=== PATIENT | female | born 1935 | race Caucasian/White ===

== ENCOUNTER 2020-08-23 23:04 | Inpatient (IN) ==
[2020-08-23] MEDS ORDERED: HYDROmorphone INJ 0.5 MG/0.5 ML SYR IV PRN (23:15)
[2020-08-23] MEDS ORDERED: SODIUM CHLORIDE 0.9% 500 ML IV ONE (23:15)
[2020-08-23] MEDS ORDERED: ACETAMINOPHEN 1,000 MG/100 ML VIAL IV STA (23:17)
[2020-08-23 23:47] LABS: INR 1.1 (0.9-1.1); Partial Thromboplastin Time 25.6 Seconds (21.0-31.0); Prothrombin Time 11.1 Seconds (9.0-12.0)
[2020-08-23 23:52] LABS: Appearance Urine Cloudy (Clear); Bilirubin Urine Negative (Negative); Blood Urine Trace-intact (Negative); Color Urine Yellow; Glucose Urine UA Negative (Negative); Hematocrit (blood only) 29.9 % (37-47); Hemoglobin 8.4 g/dL (12.0-16.0); Ketones Urine Negative (Negative); Leukocyte Esterase Urine 3+ (Negative); Mean Corpuscular Hemoglobin 16.4 pg (25-34); Mean Corpuscular Hgb Conc 28.1 g/dL (32-36); Mean Corpuscular Volume 58.5 fL (80-100); Mean Platelet Volume 8.5 fL (7.4-10.4); Nitrite Urine Negative (Negative); Platelet Count 810 K/uL (130-400); Protein Urine 2+ (Negative); RDW Coefficient of Variation 20.2 % (11.5-14.5); RDW Standard Deviation 42.8 fL (36.4-46.3); Red Blood Count 5.11 M/uL (4.2-5.4); Specific Gravity Urine >= 1.030 (1.000-1.030); Urobilinogen Urine Negative (Negative); White Blood Count 22.75 K/uL (4.8-10.8); pH Urine 7.5 (4.5-7.5)
[2020-08-23 23:53] LABS: Albumin Level 2.8 gm/dl (3.4-5.0); BUN Creatinine Ratio 20.7 (10-20); Calcium 9.5 mg/dl (8.5-10.1); Creatinine Clr Calc Pharmacy 33.5 ml/min; Est GFR (African American) 49.9; Potassium 4.2 mmol/L (3.5-5.1)
[2020-08-23 23:54] LABS: Basophils # (auto) 0.02 K/uL (0-0.2); Basophils % (auto) 0.1 %; Echinocytes 1+; Eosinophils # (auto) 0.01 K/uL (0-0.5); Hypochromasia Present; Immature Granulocytes # (auto) 0.13 K/uL (0.00-0.02); Immature Granulocytes % (auto) 0.6 %; Lymphocytes # (auto) 0.89 K/uL (1.2-3.4); Lymphocytes % (auto) 3.9 %; Monocytes # (auto) 1.87 K/uL (0.11-0.59); Monocytes % (auto) 8.2 %; Neutrophils # (auto) 19.83 K/uL (1.4-6.5); Neutrophils % (auto) 87.2 %; Ovalocytes 1+
[2020-08-23 23:58] LABS: Albumin Globulin Ratio 0.6 (0.9-2); Bilirubin,Total 0.3 mg/dl (0.2-1); Creatine Kinase MB 4.8 ng/ml (0.5-3.6); Total Protein 7.8 gm/dl (6.4-8.2)
[2020-08-24] LABS: RBC Urine 0-4 /hpf (0-4); WBC Urine >30 /hpf (0-5)
[2020-08-24 00:01] LABS: Bacteria Urine 2+ (Negative); Renal Epithelial Cells Urine 0-5 /lpf (0-5)
--- NOTE | 2020-08-24 00:27 | History & Physical Report ---
Date of Service August 24, 2020 Assessment & Plan (1) Hip fracture: 84-year-old female with CKD, prediabetes, dyslipidemia admitted for hip fracture after fall at home. Left hip fracture Femur and pelvic x-ray showing proximal femur fracture at neck of femur on the l eft CT pelvis pending CT lumbar spine negative for acute compression fractures. Chest x-ray unremarkable Dr. Chand with [facility] orthopedics consulted Pain control: 1 g Tylenol scheduled every 8 hours 0.5 mg IV Dilaudid as needed every 2 for moderate pain or pre-PT 1 mg Dilaudid IV every 2 as needed for severe pain or pre-PT 5 mg oxycodone IR every 6 as needed p.o. for moderate pain Bowel regimen: MiraLAX, Dulcolax, docusate/senna ordered PT OT consults after surgery N.p.o. at midnight UTI Urine sample significant for urine bacteria, leukocyte esterase, epithelial cells, blood most likely indicative of UTI Patient at this time does not attest to having any urinary symptoms however this could have contributed to her falling over We will treat with ceftriaxone 1 g every 24 IV. Thrombocytosis Appears to have chronically elevated platelet counts Highest recorded is today, in the 800s Patient denies any easy bleeding or clotting, spontaneous bruises DVT prophylaxis: Will hold off and defer to orthopedic surgery, in the meantime SCDs FEN/GI: N.p.o. at midnight okay for sips and chips with meds CODE STATUS: Full code Dispo: MedSurg (2) Thrombocytosis: History of Present Illness 84-year-old female with a past medical history of CKD stage III, dyslipidemia, iron deficiency anemia who presents to the emergency department for a fall 2 days ago. She states that she was taking her garbage to the end of her driveway bent over to try and pick something up and ended up falling forward. She states that she did not come to the emergency department for care at that time because she was not having that much pain initially in her hip. She did try to take some Tylenol at home but found that it was not controlling the pain appropriately as time went on. She has not had any previous bone fractures and has not been diagnosed with osteoporosis. She was recently seen by her PCP in March 2020 placed on iron supplements for an iron deficiency anemia. She was also recently seen by hematology oncology in [place] who recommended that she have an EGD and colonoscopy to work-up for possible underlying malignancy. She deferred getting the work-up done at that time and continues to deny getting it back up. At this time she denies any dizziness lightheadedness, chest pain shortness of breath, nausea vomiting constipation, diarrhea numbness tingling. Primary Care Provider: Giovana Strong DO Allergies Allergy/AdvReac Type Severity Reaction Status Date / Time No Known Drug Allergies Allergy Unknown Verified 08/24/20 00:20 Home Medications Medication Instructions Recorded Confirmed Type cholecalciferol (vitamin D3) 25 1,000 units PO DAILY 04/19/19 08/24/20 History mcg (1,000 unit) capsule glucosamine HCl 1,500 mg tablet 1,500 mg PO DAILY 04/19/19 08/24/20 History multivit with 1 tab PO DAILY 04/19/19 08/24/20 History [id number]-XL-lutein 8 mg iron-400 mcg-300 mcg tablet vitamin E (dl, acetate) 400 unit 400 units PO DAILY 04/19/19 08/24/20 History capsule ferrous sulfate 325 mg (65 mg 325 mg PO DAILY #30 tab 04/22/19 08/24/20 Rx iron) tablet Past Med/Surg History Medical History Anemia Arthritis CKD (chronic kidney disease) stage 3, GFR 30-59 ml/min Dyslipidemia HTN (hypertension) Obesity Prediabetes Surgical History Status post surgery skin gaff to R arm. Family History Brother Coronary heart disease in his 50s Mother Hypertension Father No problems noted. Brother Coronary heart disease Brother Coronary heart disease Denies family history of Ovarian cancer Prostate cancer Myocardial infarction Breast cancer Colorectal cancer Social History Smoking Status: Never smoker Tobacco Type: Cigarettes Hx Alcohol Use: No Hx Substance Use: No Preferred Language: Kiswahili Communication Ability: Effective Visual Impairment: Limited Hearing Ability: Normal [employer] Supervisor Required: No Beliefs That Will Affect Care: None marital status: / Current Living Situation: Alone current occupational status: retired Other Information That Helps Us Care for You: No Feels Safe at Home: Yes Safety Concerns: Feels Safe At This Time Childhood Exposure to Second-Hand Smoke: Yes caffeine: Yes (coffee x 2 cups per day.) during the past year weight has: remained stable Dental Care, Regularly: Yes Physical Activity Frequency: 3-4 Times per Week Seatbelt Use: always Sunscreen Use: Yes Assistive Devices: Glasses Review of Systems Review of Systems: All systems reviewed & are unremarkable except as noted in Subjective Physical Exam Physical Exam: Constitutional: thin elderly woman in no apparent distress, sitting comfortably in bed. Face: reddish-purple bruise on lateral aspect of right orbit onto the temples Eyes: EOMI, pupils equal and reactive bilaterally, no scleral icterus Cardiac: RRR, no murmurs, gallops or rubs. Normal S1, S2 Pulm: CTA BL, no wheezes, rhonchi, crackles or rubs, moving air well throughout both lungs Abd: soft, nontender, nondistended, normal bowel sounds, no rebound or guarding Extremities: 2+ peripheral pulses, no edema, no pain to palpation overlying left thigh Neuro: no focal deficits, A&Ox3 Skin: no overlying hematoma or bruising over left thigh/pelvis. Results & Data Results & Data ([facility]) Vital Signs (Past 12 Hours) Vital Signs Temp Pulse Resp BP Pulse Ox 08/23/20 23:28 37.0 C 110 H 18 110/73 94 Laboratory Results WBC 22.75 K/uL (4.8-10.8) H 08/23/20 23:24 RBC 5.11 M/uL (4.2-5.4) 08/23/20 23:24 Hgb 8.4 g/dL (12.0-16.0) L 08/23/20 23:24 Hct 29.9 % (37-47) L 08/23/20 23:24 MCV 58.5 fL (80-100) L 08/23/20 23:24 MCH 16.4 pg (25-34) L 08/23/20 23:24 MCHC 28.1 g/dL (32-36) L 08/23/20 23:24 RDW Std Deviation 42.8 fL (36.4-46.3) 08/23/20 23:24 RDW Coeff of Gonzalez 20.2 % (11.5-14.5) H 08/23/20 23:24 Plt Count 810 K/uL (130-400) H 08/23/20 23:24 MPV 8.5 fL (7.4-10.4) 08/23/20 23:24 Immature Gran % (Auto) 0.6 % 08/23/20 23:24 Neut % (Auto) 87.2 % 08/23/20 23:24 Lymph % (Auto) 3.9 % 08/23/20 23:24 [place] % (Auto) 8.2 % 08/23/20 23:24 Eos % (Auto) 0.0 % 08/23/20 23:24 Baso % (Auto) 0.1 % 08/23/20 23:24 Neut # (Auto) 19.83 K/uL (1.4-6.5) H 08/23/20 23:24 Lymph # (Auto) 0.89 K/uL (1.2-3.4) L 08/23/20 23:24 [place] # (Auto) 1.87 K/uL (0.11-0.59) H 08/23/20 23:24 Eos # (Auto) 0.01 K/uL (0-0.5) 08/23/20 23:24 Baso # (Auto) 0.02 K/uL (0-0.2) 08/23/20 23:24 Immature Gran # (Auto) 0.13 K/uL (0.00-0.02) H 08/23/20 23:24 Hypochromasia Present 08/23/20 23:24 Ovalocytes 1+ 08/23/20 23:24 Echinocytes 1+ 08/23/20 23:24 PT 11.1 Seconds (9.0-12.0) 08/23/20 23:24 INR 1.1 (0.9-1.1) 08/23/20 23:24 APTT 25.6 Seconds (21.0-31.0) 08/23/20 23:24 PTT Ratio 1.0 08/23/20 23:24 Sodium 138 mmol/L (136-145) 08/23/20 23:24 Potassium 4.2 mmol/L (3.5-5.1) 08/23/20 23:24 Chloride 106 mmol/L (98-107) 08/23/20 23:24 Carbon Dioxide 23 mmol/L (21-32) 08/23/20 23:24 Anion Gap 9.0 (3-11) 08/23/20 23:24 BUN 24 mg/dl (7-18) H 08/23/20 23:24 Creatinine 1.15 mg/dl (0.6-1.2) 08/23/20 23:24 Est Cr Clr Drug Dosing 33.5 ml/min 08/23/20 23:24 Est GFR ( Amer) 49.9 08/23/20 23:24 Est GFR (Non-Af Amer) 43.0 08/23/20 23:24 BUN/Creatinine Ratio 20.7 (10-20) H 08/23/20 23:24 Glucose 162 mg/dl (70-99) H 08/23/20 23:24 Calcium 9.5 mg/dl (8.5-10.1) 08/23/20 23:24 Total Bilirubin 0.3 mg/dl (0.2-1) 08/23/20 23:24 AST 24 U/L (15-37) 08/23/20 23:24 ALT 17 U/L (12-78) 08/23/20 23:24 Alkaline Phosphatase 75 U/L (45-117) 08/23/20 23:24 Total Creatine Kinase 356 U/L (26-192) H 08/23/20 23:24 CK-MB (CK-2) 4.8 ng/ml (0.5-3.6) H 08/23/20 23:24 CK/CKMB % Calc 1.3 (0-3.0) 08/23/20 23:24 Total Protein 7.8 gm/dl (6.4-8.2) 08/23/20 23:24 Albumin 2.8 gm/dl (3.4-5.0) L 08/23/20 23:24 Globulin 5.0 gm/dl (2.5-4.0) H 08/23/20 23:24 Albumin/Globulin Ratio 0.6 (0.9-2) L 08/23/20 23:24 Urine Color Yellow 08/23/20 23:24 Urine Appearance Cloudy (Clear) A 08/23/20 23:24 Urine pH 7.5 (4.5-7.5) 08/23/20 23:24 Ur Specific [place] >= 1.030 (1.000-1.030) 08/23/20 23:24 Urine Protein 2+ (Negative) H 08/23/20 23:24 Urine Glucose (UA) Negative (Negative) 08/23/20 23:24 Urine Ketones Negative (Negative) 08/23/20 23:24 Urine Blood Trace-intact (Negative) H 08/23/20 23:24 Urine Nitrite Negative (Negative) 08/23/20 23:24 Urine Bilirubin Negative (Negative) 08/23/20 23:24 Urine Urobilinogen Negative (Negative) 08/23/20 23:24 Ur Leukocyte Esterase 3+ (Negative) H 08/23/20 23:24 Urine RBC 0-4 /hpf (0-4) 08/23/20 23:24 Urine WBC >30 /hpf (0-5) H 08/23/20 23:24 Ur Epithelial Cells 5-10 /lpf (0-5) H 08/23/20 23:24 Ur Renal Epithelial Cell 0-5 /lpf (0-5) 08/23/20 23:24 Urine Bacteria 2+ (Negative) H 08/23/20 23:24 COVID-19 Eval Order Covid19 [facility]Now [facility] 08/23/20 23:25 SARS-CoV-2, RNA, NAAT NEGATIVE (NEGATIVE) 08/23/20 23:25 Supervising Physician Co-Signing Physician Notes Attending addendum: I have physically seen this patient, have supervised the medical residents activities, and agree with the H&P unless as otherwise noted. Assessment and Plan: Closed left hip fracture- N.p.o. after midnight Admit to medical surgical floor Acetaminophen 1000 mg IV every 8 hours Dilaudid 0.5 mg IV every 2 hours as needed moderate pain Dilaudid 1 mg IV every 2 hours as needed severe pain Oxycodone 5 mg p.o. every 6 hours as needed moderate pain Geriatric hip fracture protocol order set Case discussed with orthopedic consult Dr. Chand Urinary tract infection- Follow urine culture and sensitivities Empiric ceftriaxone 1 g IV daily Remaining orders and notations as noted Resident Activity Tracking Resident Involvement: Resident Care Provided Care Provided: Adult [facility] Medicine (1) Hip fracture Encounter type: initial encounter Fracture type: closed Laterality: left Qualified Code(s): S72.002A - Fracture of unspecified part of neck of left femur, initial encounter for closed fracture
--- NOTE | 2020-08-24 00:45 | Emergency Department Note ---
Impression & Plan Fall, HTN (hypertension), Anemia, Hip fracture ED Provider Note NAME: JABIER GARAY AGE: 84 SEX: F : 1935 ARRIVES VIA: Ambulance INFORMANT: Patient, EMS, son ED PROVIDER(S): German Tellez MD CHIEF COMPLAINT: lay on ground for 2 days HPI: This is an 84-year-old female who presents emergency department after falling and laying on the ground for 2 days. The patient reports she was having back and hip pain and therefore sat on the ground. She has a history of a fall approximately 1 month ago. Upon arrival to the emergency department patient is unable to move her left hip. Family became concerned because they were unable to contact the patient for 2 days and sent a neighbor who was able to get into the house and find the patient on the floor. EMS was summoned brought the patient to the emergency department. The patient reports movement makes the pain worse however immobilization makes it better. She has not taken anything for the pain prior to arrival. She describes the pain as an ache with no radiation. ROS: See above HPI for pertinent positives & negatives. A total of 10 systems reviewed and were otherwise negative. PAST MEDICAL HISTORY: See Below PAST SURGICAL HISTORY: See Below FAMILY HISTORY: See Below SOCIAL HISTORY: See Below HOME MEDICATIONS: See Below ALLERGIES: See Below VITALS: See Below PHYSICAL EXAMINATION: VITAL SIGNS - Vital signs and nursing notes were reviewed. GENERAL - 84-year-old female appearing stated age who is in no acute distress. Communicates well with provider and answers questions appropriately. SKIN - Without rashes. HEAD - NC/AT. EYES - PERRL with EOMI bilaterally. Sclera anicteric. Palpebral conjunctiva pink and moist with no injection noted. EARS - No deformities of external structures noted on gross examination bilaterally. NOSE - Midline and without cyanosis. No epistaxis or purulent drainage noted. Septum midline without deviation or septal hematoma noted. MOUTH/OROPHARYNX - Without perioral cyanosis. Buccal mucosa pink and moist and without leukoplakia. Tongue midline with equal elevation of palate bilaterally. No tonsillar hypertrophy, erythema, or exudates noted. dentition noted. NECK - Neck with FROM. Supple to palpation. lymphadenopathy noted. No nuchal rigidity. LUNGS - Chest wall symmetric without accessory muscle use, intercostals retractions, or central cyanosis. Normal vesicular breath sounds CTA B/L. No wheezes, rales, or rhonchi appreciated. CARDIAC - RRR with S1/S2. No murmur, rubs, or gallops appreciated. ABDOMEN - Abdominal contour without pulsations or visible masses. BS normoactive all four quadrants. No tenderness, palpable masses, hepatosplenomegaly, or ascites noted. EXTREMITIES - left leg in position of comfort, pt unable to raise left hip, neurovascularly intact at knee and ankle. NEUROLOGIC - Cranial nerves II through XII grossly intact. Sensory intact to light touch throughout. Patellar reflexes +2/4. PSYCH - A&Ox3 and cooperates fully with examiner. Pt is very pleasant and interacts well with examiner. MEDICAL DECISION MAKING: Patient was seen and evaluated as above in room A12. Review was performed of nursing notes and vital signs. I did review pertinent previous visits and patient history. After obtaining a thorough history and physical examination the above work up was performed. This is an 84-year-old female who presents emergency department after laying on the ground for approximately 48 hours. Patient CK is slightly elevated. She was given a normal saline bolus here in the emergency department. She was given Dilaudid for her pain. The patient is anemic but appears to be at her baseline. Because of the hip fracture she was typed and screened. I did discuss my findings with both the patient and her son. X-rays do confirm a left hip fracture. I did discuss the case with the hospitalist service as well as the orthopedic service. An order was placed for continuous cardiac monitoring. The monitor shows a rate of 99 with Normal SInus rhythm. The patient was evaluated during a period of high volume and high acuity during the global COVID-19 pandemic, and that diagnosis was suspected/considered upon their initial presentation. Their evaluation, treatment and testing was consistent with current guidelines for patients who present with complaints or symptoms that may be related to COVID-19. Patient was seen while provider was wearing PPE. Triage Nursing notes reviewed. Prior medical records reviewed Vital Signs: reviewed and remarkable for no significant abnormalities Differential diagnosis: Fracture, subluxation, dislocation, contusion, ligamentous injury, neurovascular, compartment syndrome, rhabdomyolysis, as well as other pathologies. ER treatment provided: See below Diagnostics interpreted by me: ECG: EKG shows a sinus tachycardia no ST elevation or depression ventricular rate of 109 QTC is 468 there is no previous EKG to compare to Laboratory studies: As stated above and show below. Imaging studies: A 1 view of the chest was interpreted by me shows no evidence of pneumonia congestion or pneumothorax A 1 view of the pelvis was interpreted by me shows an intertrochanteric left femur fracture A 2 view of the left femur was interpreted by me shows the intertrochanteric left femur fracture CT L-spine: No fractures of the lumbar spine. There are degenerative changes with intervertebral disc narrowing at all levels. At L1-L2 there is a small disc bulge. At L2-L3 there is a small diffuse disc bulge. In conjunction with facet hypertrophy this results in moderate central stenosis at this level. At the level of L3-L4 there is diffuse disc bulge and posterior osteophyte in conjunction with facet hypertrophy there is moderate central canal spinal stenosis. At L4-L5 there is a right paracentral disc bulge and central osteophyte formation. In conjunction with facet hypertrophy this results in moderate central spinal canal stenosis. Impression multilevel moderate stenosis related to facet hypertrophy and small disc bulges. CT of the head: No ICH mass-effect or edema. No evidence of acute cortical stroke. There is a rounded expansile density in the right maxillary sinus suggesting a mucous retention cyst. Consultation(s): orthopedics, hospitalist service Past Med/Surg History Medical History Anemia Arthritis CKD (chronic kidney disease) stage 3, GFR 30-59 ml/min Dyslipidemia HTN (hypertension) Obesity Prediabetes Surgical History Status post surgery skin gaff to R arm. Family History Brother Coronary heart disease in his 50s Mother Hypertension Father No problems noted. Brother Coronary heart disease Brother Coronary heart disease Denies family history of Ovarian cancer Prostate cancer Myocardial infarction Breast cancer Colorectal cancer Social History Smoking Status: Former smoker Tobacco Type: Cigarettes Hx Alcohol Use: No Hx Substance Use: No Preferred Language: Nepali Communication Ability: Effective Visual Impairment: Limited Hearing Ability: Normal Beliefs That Will Affect Care: None marital status: / Current Living Situation: Alone current occupational status: retired Feels Safe at Home: Yes Childhood Exposure to Second-Hand Smoke: Yes caffeine: Yes (coffee x 2 cups per day.) during the past year weight has: remained stable Dental Care, Regularly: Yes Physical Activity Frequency: 3-4 Times per Week Seatbelt Use: always Sunscreen Use: Yes Allergies Allergies Allergy/AdvReac Type Severity Reaction Status Date / Time No Known Drug Allergies Allergy Unknown Verified 08/24/20 00:20 Home Meds Home Medications Medication Instructions Recorded Confirmed cholecalciferol (vitamin D3) 25 1,000 units PO DAILY 04/19/19 08/24/20 mcg (1,000 unit) capsule glucosamine HCl 1,500 mg tablet 1,500 mg PO DAILY 04/19/19 08/24/20 multivit with 1 tab PO DAILY 04/19/19 08/24/20 eugbeefx-ahma-UK-lutein 8 mg iron-400 mcg-300 mcg tablet vitamin E (dl, acetate) 400 unit 400 units PO DAILY 04/19/19 08/24/20 capsule Previous Rx's Medication Instructions Recorded ferrous sulfate 325 mg (65 mg 325 mg PO DAILY #30 tab 04/22/19 iron) tablet Results & Data (ED) Vital Signs Vital Signs - 24 hr 08/23/20 23:28 08/24/20 00:39 08/24/20 02:04 Temperature 37.0 C Temperature Source Oral Pulse Rate 110 H 97 H Pulse Rate [Right] 99 H Pulse Rhythm Regular Pulse Rhythm [Right] Regular Pulse Strength Normal Pulse Strength [Right] Normal Respiratory Rate 18 16 18 Respiratory Effort / Characteristics Non-Labored Spontaneous Non-Labored Spontaneous Respiratory Depth Normal Normal Blood Pressure 110/73 134/79 Blood Pressure [Right Arm] 144/76 H Blood Pressure Mean 85 Blood Pressure Mean [Right Arm] 98 Blood Pressure Position [Right Arm] Lying Pulse Oximetry 94 95 93 Oxygen Delivery Method Room Air Room Air Room Air Sepsis Recent Fever Within 48 Hours No Sepsis New/Unexplained Change in Mental Status N/A Sepsis Action Taken by Nursing No Action Required Laboratory Data Result diagrams: 08/23/20 23:24 08/23/20 23:24 Lab Results 08/23/20 08/23/20 08/23/20 Range/Units 23:24 23:24 23:24 WBC 22.75 H (4.8-10.8) K/uL RBC 5.11 (4.2-5.4) M/uL Hgb 8.4 L (12.0-16.0) g/dL Hct 29.9 L (37-47) % MCV 58.5 L (80-100) fL MCH 16.4 L (25-34) pg MCHC 28.1 L (32-36) g/dL RDW Std Deviation 42.8 (36.4-46.3) fL RDW Coeff of Gonzalez 20.2 H (11.5-14.5) % Plt Count 810 H (130-400) K/uL MPV 8.5 (7.4-10.4) fL Immature Gran % (Auto) 0.6 % Neut % (Auto) 87.2 % Lymph % (Auto) 3.9 % [place] % (Auto) 8.2 % Eos % (Auto) 0.0 % Baso % (Auto) 0.1 % Neut # (Auto) 19.83 H (1.4-6.5) K/uL Lymph # (Auto) 0.89 L (1.2-3.4) K/uL [place] # (Auto) 1.87 H (0.11-0.59) K/uL Eos # (Auto) 0.01 (0-0.5) K/uL Baso # (Auto) 0.02 (0-0.2) K/uL Immature Gran # (Auto) 0.13 H (0.00-0.02) K/uL Hypochromasia Present Ovalocytes 1+ Echinocytes 1+ PT 11.1 (9.0-12.0) Seconds INR 1.1 (0.9-1.1) APTT 25.6 (21.0-31.0) Seconds PTT Ratio 1.0 Sodium 138 (136-145) mmol/L Potassium 4.2 (3.5-5.1) mmol/L Chloride 106 (98-107) mmol/L Carbon Dioxide 23 (21-32) mmol/L Anion Gap 9.0 (3-11) BUN 24 H (7-18) mg/dl Creatinine 1.15 (0.6-1.2) mg/dl Est Cr Clr Drug Dosing 33.5 ml/min Est GFR ( Amer) 49.9 Est GFR (Non-Af Amer) 43.0 BUN/Creatinine Ratio 20.7 H (10-20) Glucose 162 H (70-99) mg/dl Calcium 9.5 (8.5-10.1) mg/dl Total Bilirubin 0.3 (0.2-1) mg/dl AST 24 (15-37) U/L ALT 17 (12-78) U/L Alkaline Phosphatase 75 (45-117) U/L Total Creatine Kinase 356 H (26-192) U/L CK-MB (CK-2) 4.8 H (0.5-3.6) ng/ml CK/CKMB % Calc 1.3 (0-3.0) Total Protein 7.8 (6.4-8.2) gm/dl Albumin 2.8 L (3.4-5.0) gm/dl Globulin 5.0 H (2.5-4.0) gm/dl Albumin/Globulin Ratio 0.6 L (0.9-2) Urine Color Urine Appearance (Clear) Urine pH (4.5-7.5) Ur Specific Williams (1.000-1.030) Urine Protein (Negative) Urine Glucose (UA) (Negative) Urine Ketones (Negative) Urine Blood (Negative) Urine Nitrite (Negative) Urine Bilirubin (Negative) Urine Urobilinogen (Negative) Ur Leukocyte Esterase (Negative) Urine RBC (0-4) /hpf Urine WBC (0-5) /hpf Ur Epithelial Cells (0-5) /lpf Ur Renal Epithelial Cell (0-5) /lpf Urine Bacteria (Negative) COVID-19 Eval Order SARS-CoV-2, RNA, NAAT (NEGATIVE) 08/23/20 08/23/20 08/23/20 Range/Units 23:24 23:25 23:25 WBC (4.8-10.8) K/uL RBC (4.2-5.4) M/uL Hgb (12.0-16.0) g/dL Hct (37-47) % MCV (80-100) fL MCH (25-34) pg MCHC (32-36) g/dL RDW Std Deviation (36.4-46.3) fL RDW Coeff of Gonzalez (11.5-14.5) % Plt Count (130-400) K/uL MPV (7.4-10.4) fL Immature Gran % (Auto) % Neut % (Auto) % Lymph % (Auto) % [place] % (Auto) % Eos % (Auto) % Baso % (Auto) % Neut # (Auto) (1.4-6.5) K/uL Lymph # (Auto) (1.2-3.4) K/uL [place] # (Auto) (0.11-0.59) K/uL Eos # (Auto) (0-0.5) K/uL Baso # (Auto) (0-0.2) K/uL Immature Gran # (Auto) (0.00-0.02) K/uL Hypochromasia Ovalocytes Echinocytes PT (9.0-12.0) Seconds INR (0.9-1.1) APTT (21.0-31.0) Seconds PTT Ratio Sodium (136-145) mmol/L Potassium (3.5-5.1) mmol/L Chloride (98-107) mmol/L Carbon Dioxide (21-32) mmol/L Anion Gap (3-11) BUN (7-18) mg/dl Creatinine (0.6-1.2) mg/dl Est Cr Clr Drug Dosing ml/min Est GFR ( Amer) Est GFR (Non-Af Amer) BUN/Creatinine Ratio (10-20) Glucose (70-99) mg/dl Calcium (8.5-10.1) mg/dl Total Bilirubin (0.2-1) mg/dl AST (15-37) U/L ALT (12-78) U/L Alkaline Phosphatase (45-117) U/L Total Creatine Kinase (26-192) U/L CK-MB (CK-2) (0.5-3.6) ng/ml CK/CKMB % Calc (0-3.0) Total Protein (6.4-8.2) gm/dl Albumin (3.4-5.0) gm/dl Globulin (2.5-4.0) gm/dl Albumin/Globulin Ratio (0.9-2) Urine Color Yellow Urine Appearance Cloudy A (Clear) Urine pH 7.5 (4.5-7.5) Ur Specific Williams >= 1.030 (1.000-1.030) Urine Protein 2+ H (Negative) Urine Glucose (UA) Negative (Negative) Urine Ketones Negative (Negative) Urine Blood Trace-intact H (Negative) Urine Nitrite Negative (Negative) Urine Bilirubin Negative (Negative) Urine Urobilinogen Negative (Negative) Ur Leukocyte Esterase 3+ H (Negative) Urine RBC 0-4 (0-4) /hpf Urine WBC >30 H (0-5) /hpf Ur Epithelial Cells 5-10 H (0-5) /lpf Ur Renal Epithelial Cell 0-5 (0-5) /lpf Urine Bacteria 2+ H (Negative) COVID-19 Eval [facility] SARS-CoV-2, RNA, NAAT NEGATIVE (NEGATIVE) Administered Medications Hydromorphone HCl (Hydromorphone Inj 0.5 Mg/0.5 Ml Syr) 0.25 mg IV Q20M PRN PRN Reason: Moderate Pain (Rating 3,4,5,6) Stop: 09/06/20 23:14 Last Admin: 08/23/20 23:26 Dose: 0.25 mg Documented by: [id number] Discontinued Medications Sodium Chloride (Nss) 500 mls @ 999 mls/hr IV .Q31M ONE Stop: 08/23/20 23:45 Last Infusion: 08/23/20 23:58 Dose: 0 mls/hr Documented by: [id number] Admin: 08/23/20 23:25 Dose: 999 mls/hr Documented by: [id number] Acetaminophen (Ofirmev) 1,000 mg in 100 mls @ 400 mls/hr IV NOW STA Stop: 08/23/20 23:31 Last Infusion: 08/23/20 23:41 Dose: 0 mls/hr Documented by: [id number] Admin: 08/23/20 23:26 Dose: 400 mls/hr Documented by: [id number] Discharge Plan Visit Data Chief Complaint: Hip Pain Stated Complaint: POSSIBLE FALL/LETHARGY ED Provider: German Tellez Discharge Problem: Fall, HTN (hypertension), Anemia, Hip fracture Discharge Instructions Interventions: ED Discharge Assessment Last Done: 08/24/20 02:04 Forms Stand Alone Forms: [employer] Prescriptions Prescriptions: No Action ferrous sulfate 325 mg (65 mg iron) tablet 325 mg PO DAILY Qty: 30 RF: 2 Centrum Silver Women 8 mg iron-400 mcg-300 mcg tablet 1 tab PO DAILY RF: 0 glucosamine HCl 1,500 mg tablet 1,500 mg PO DAILY RF: 0 vitamin E (dl, acetate) 400 unit capsule 400 units PO DAILY RF: 0 cholecalciferol (vitamin D3) 1,000 unit capsule 1,000 units PO DAILY RF: 0 Referrals Referrals: Giovana Strong DO [Primary Care Provider] - Discharge Problem: Fall Qualifiers: Encounter type: initial encounter Qualified Code(s): W19.XXXA - Unspecified fall, initial encounter HTN (hypertension) Qualifiers: Hypertension type: unspecified Qualified Code(s): I10 - Essential (primary) hypertension Anemia Qualifiers: Anemia type: unspecified type Qualified Code(s): D64.9 - Anemia, unspecified Hip fracture Qualifiers: Encounter type: initial encounter Fracture type: closed Laterality: left Qualified Code(s): S72.002A - Fracture of unspecified part of neck of left femur, initial encounter for closed fracture
[2020-08-24] MEDS ORDERED: cefTRIAXone SODIUM 1000MG/50ML D5W IV STA (02:22)
[2020-08-24] MEDS ORDERED: bisacodyL 10 MG SUPP PR PRN (02:37)
[2020-08-24] MEDS ORDERED: HYDROmorphone INJ 1 MG/ML SYRINGE IV PRN (02:37)
[2020-08-24] MEDS ORDERED: ACETAMINOPHEN 500 MG TAB PO PRN (02:37)
[2020-08-24] MEDS ORDERED: NALOXONE HCL 0.4 MG/1 ML VIAL/CARP IV PRN (02:37)
[2020-08-24] MEDS ORDERED: ONDANSETRON INJ 2 MG/ML 2 ML VIAL IV PRN ×2 (02:37→13:22)
[2020-08-24] MEDS ORDERED: HYDROmorphone INJ 0.5 MG/0.5 ML SYR IV PRN (02:37)
[2020-08-24] MEDS ORDERED: MAGNESIUM HYDROXIDE SUSP 30 ML UDC PO PRN (02:37)
[2020-08-24] MEDS: SODIUM CHLORIDE 0.9% 1000ML 1,000 ML IV SCH ×2 (03:26→18:22)
[2020-08-24 06:45] LABS: Microcytosis Present
--- NOTE | 2020-08-24 07:08 | CT Scan Report ---
CT head/brain wo con CLINICAL HISTORY: Head pain status post trauma COMPARISON STUDY: No previous studies for comparison. TECHNIQUE: Axial CT of the brain is performed from the vertex to the skull base. IV contrast was not administered for this examination. A dose lowering technique was utilized adhering to the principles of ALARA. CT DOSE: 537.48 mGy.cm FINDINGS: No intra or extra-axial mass lesions are visualized. There is no CT evidence of acute cortical infarc tion. There is no evidence of midline shift. There is no acute hemorrhage. No calvarial fractures ar e visualized. There are patchy white matter hypodensities likely on a small vessel basis. There is no evidence of pathologic ventricular dilatation. There is complete opacification right maxillary sinus with wall thickening. This indicates a chronic process. Several ethmoid air cells are opacified on the right. IMPRESSION: No acute intracranial findings ACT 112: Negative or not required by law. Electronically signed by: Papi Rubio M.D. 08/24/2020 7:06 AM
[2020-08-24 07:28] LABS: INR 1.1 (0.9-1.1); Prothrombin Time 11.1 Seconds (9.0-12.0)
--- NOTE | 2020-08-24 07:31 | XRay Report ---
XR chest 1V portable HISTORY: Pt c/o fall COMPARISON: None. FINDINGS: The lungs are clear. The heart is normal in size. Calcifications within the aortic knob. No effusions. No pneumothorax. No acute rib fractures identified. IMPRESSION: No acute process. ACT 112: Negative or not required by law. Electronically signed by: William Ramos M.D. 08/24/2020 7:29 AM
[2020-08-24] MEDS: CHOLECALCIFEROL 1,000 UNITS 25 MCG TAB PO SCH (07:33)
[2020-08-24] MEDS ORDERED: ceFAZolin 1000MG 1,000 MG/7.5 ML SYR IV ONE (07:35)
--- NOTE | 2020-08-24 07:38 | CT Scan Report ---
CT lumbar spine wo con CT DOSE: 578.86 mGy.cm CLINICAL HISTORY: Back pain status post trauma TECHNIQUE: Helical images were acquired in transverse plane. Reformatted sagittal and coronal images were reviewed. A dose lowering technique was utilized adhering to the principles of ALARA. CONTRAST: No contrast was administered COMPARISON STUDY: None. FINDINGS: L1-2 level: There is a circumferential disc bulge and mild spinal stenosis. There is no significant f oraminal narrowing L2-3 level: There is a circumferential disc bulge and moderate spinal stenosis. There is no significa nt foraminal narrowing L3-4 level: There is a circumferential disc bulge with posterior disc osteophyte complex. There is mo derate spinal stenosis. There is no significant foraminal narrowing L4-5 level: There is a circumferential disc bulge with moderate spinal stenosis. There is minor right -sided foraminal narrowing L5-S1 level: There is no evidence of significant disc bulge or focal herniation. There is no evidence of spinal or foraminal stenosis. No acute fractures or traumatic subluxations are visualized. IMPRESSION: 1. No acute fractures or traumatic subluxations identified 2. Multilevel spondylytic changes with moderate spinal stenosis the L2-3, L3-4, L4-5 levels. ACT 112: Negative or not required by law. Electronically signed by: Papi Rubio M.D. 08/24/2020 7:36 AM
--- NOTE | 2020-08-24 07:40 | XRay Report ---
XR pelvis 1-2V routine, XR femur LT 2V routine CLINICAL HISTORY: Pt c/o left hip pain COMPARISON STUDY: None. FINDINGS: Mildly displaced left femoral neck fracture. No dislocation. The visualized pelvic bones an d right hip are intact. Lateral soft tissue swelling within the left hip. The mid to distal left femu r is intact. IMPRESSION: Mildly displaced left femoral neck fracture. ACT 112: Negative or not required by law. Electronically signed by: William Ramos M.D. 08/24/2020 7:38 AM
--- NOTE | 2020-08-24 07:47 | CT Scan Report ---
CT pelvis wo con CT DOSE: 429.13 mGy.cm CLINICAL HISTORY: Left hip fracture. Pelvic pain TECHNIQUE: Helical images were acquired in the transverse plane. Sagittal coronal reformatted images were acquir ed. A dose lowering technique was utilized adhering to the principles of ALARA. COMPARISON STUDY: X-ray study dated 08/23/2020 FINDINGS: There is a mildly displaced impacted subcapital left hip fracture. No additional fractures are visual ized. There is a 9 cm mass involving the cecum and terminal ileum. This finding was not described in the pr eliminary report. This will be called to the floor. There is a large amount stool within the rectum which measures 8 cm transversely. IMPRESSION: 1. 9 cm mass involving the cecum and terminal ileum. GI consultation is recommended for endoscopic co rrelation 2. Subcapital left hip fracture ACT 112: Positive. There are findings on this exam that require communication between the performing entity and the patient following Patient Test Result Information Act ([place] Act 112) guidelines. Electronically signed by: Papi Rubio M.D. 08/24/2020 7:45 AM
[2020-08-24 07:51] LABS: BUN Creatinine Ratio 23.8 (10-20); Calcium 8.8 mg/dl (8.5-10.1); Creatinine Clr Calc Pharmacy 40.1 ml/min; Est GFR (African American) 62.1; Est GFR (Non-African American) 53.6; Potassium 3.7 mmol/L (3.5-5.1)
--- NOTE | 2020-08-24 07:51 | History & Physical Report ---
Date of Service August 24, 2020 Assessment & Plan (1) Fracture of left hip requiring operative repair: Anticipate the patient will go to the OR later today for hemiarthroplasty. Please see 's consult for final management. Patient will remain n.p.o. Preoperative Ancef has been ordered. Admission and Anticipated Discharge Date Admission Date: August 24, 2020 History of Present Illness Chief Complaint: Left hip pain Primary Care Provider: Giovana Strong DO This 84-year-old white female presented through the ED, for left hip pain. Patient states she fell while taking out her garbage. She was trying to adjust the can, so it was not present in the roadway. She states she slipped in the small stones at the edge of the road. She states a male neighbor helped her back to the house and was not having significant pain immediately after the fall. She has been essentially nonmobile for the last 48 hours due to pain. Per the ED report, her family was unable to reach her for 2 days and became concerned. They sent a male neighbor over to the house, who found her sitting on the floor, unable to move secondary to hip pain. She was finally seen in the ED last evening and found to have a left and found to have a femoral neck fracture. She denies any prior history of significant hip injury. No numbness or tingling. She is somewhat confused this morning. No other complaints. Allergies Allergy/AdvReac Type Severity Reaction Status Date / Time No Known Drug Allergies Allergy Unknown Verified 08/24/20 00:20 Home Medications Medication Instructions Recorded Confirmed Type cholecalciferol (vitamin D3) 25 1,000 units PO DAILY 04/19/19 08/24/20 History mcg (1,000 unit) capsule glucosamine HCl 1,500 mg tablet 1,500 mg PO DAILY 04/19/19 08/24/20 History multivit with 1 tab PO DAILY 04/19/19 08/24/20 History nwemjevn-mrds-TW-lutein 8 mg iron-400 mcg-300 mcg tablet vitamin E (dl, acetate) 400 unit 400 units PO DAILY 04/19/19 08/24/20 History capsule ferrous sulfate 325 mg (65 mg 325 mg PO DAILY #30 tab 04/22/19 08/24/20 Rx iron) tablet Past Med/Surg History Medical History Anemia Arthritis CKD (chronic kidney disease) stage 3, GFR 30-59 ml/min Dyslipidemia HTN (hypertension) Obesity Prediabetes Surgical History Status post surgery skin gaff to R arm. Family History Brother Coronary heart disease in his 50s Mother Hypertension Father No problems noted. 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 Beliefs That Will Affect Care: None marital status: / Current Living Situation: Alone current occupational status: retired Other Information That Helps Us Care for You: No Feels Safe at Home: Yes Safety Concerns: Feels Safe At This Time Childhood Exposure to Second-Hand Smoke: Yes caffeine: Yes (coffee x 2 cups per day.) during the past year weight has: remained stable Dental Care, Regularly: Yes Physical Activity Frequency: 3-4 Times per Week Seatbelt Use: always Sunscreen Use: Yes Assistive Devices: Denture - Upper Review of Systems Review of Systems: Unobtainable due to cognitive status Physical Exam Physical Exam: General: Well-developed, elderly white female, in no acute distress. Laying on a bed. Alert and oriented to person, place, and date. She is not really sure why she is in the hospital at this time. Skin: Warm and dry with fair turgor. No rashes or lesions. There is ecchymosis over her right forehead and around the right eye. No erythema. The patient is not diaphoretic. HEENT: Normocephalic. Eyes PERRLA, EOMI. Nares patent bilaterally without turbinate enlargement. Oropharynx without erythema or exudate. Uvula midline. Oral mucosa moist. Heart: RRR, no MGR. Lungs: Lungs are clear to auscultation. No crackles rhonchi or wheezing. Good air movement. The patient is able to take a deep breath. Abdomen: Abdomen was inspected, auscultated, and palpated. Moderately obese. Bowel sounds present x 4. Soft, nontender to palpation. No hepato-splenomegal y. No masses noted. No rebound. Musculoskeletal: Left hip shows no obvious asymmetry or deformity. Left leg is slightly shortened. She has significant left hip discomfort with attempted motion of the hip, passively and actively. Gross motor function of the ankle and toes is intact and unremarkable. Good strength against resistance. Neurologic: Gross sensation is intact across both lower extremities by soft touch. Peripheral pulses are 2+. Results & Data Results & Data ([facility]) Vital Signs (Past 12 Hours) Vital Signs Temp Pulse Pulse Resp BP BP Pulse Ox 08/24/20 07:36 36.9 C 99 H 18 115/69 97 08/24/20 03:26 36.5 C 92 H 14 126/75 95 08/24/20 02:04 97 H 18 134/79 93 08/24/20 00:39 99 H 16 144/76 H 95 08/23/20 23:28 37.0 C 110 H 18 110/73 94
[2020-08-24 08:16] LABS: Hematocrit (blood only) 25.7 % (37-47); Hemoglobin 7.3 g/dL (12.0-16.0); Mean Corpuscular Hemoglobin 16.6 pg (25-34); Mean Corpuscular Hgb Conc 28.4 g/dL (32-36); Mean Corpuscular Volume 58.5 fL (80-100); Mean Platelet Volume 8.7 fL (7.4-10.4); Nucleated RBC # (auto) 0.03 K/uL (0-0); Nucleated RBC % (auto) 0.1 %; Platelet Count 702 K/uL (130-400); RDW Standard Deviation 42.6 fL (36.4-46.3); Red Blood Count 4.39 M/uL (4.2-5.4); White Blood Count 19.23 K/uL (4.8-10.8)
[2020-08-24 08:19] LABS: Anisocytosis Present; Basophils # (auto) 0.02 K/uL (0-0.2); Basophils % (auto) 0.1 %; Eosinophils # (auto) 0.06 K/uL (0-0.5); Eosinophils % (auto) 0.3 %; Immature Granulocytes # (auto) 0.09 K/uL (0.00-0.02); Immature Granulocytes % (auto) 0.5 %; Lymphocytes # (auto) 1.05 K/uL (1.2-3.4); Lymphocytes % (auto) 5.5 %; Microcytosis Present; Monocytes # (auto) 1.62 K/uL (0.11-0.59); Monocytes % (auto) 8.4 %; Neutrophils # (auto) 16.39 K/uL (1.4-6.5); Neutrophils % (auto) 85.2 %
--- NOTE | 2020-08-24 08:52 | Progress Notes ---
DATE: 08/24/2020 The patient was seen in conjunction with Gabe Ritter. For further details, refer to his dictation of the same date. He and I examined the patient together and I am in agreement with the plan. The patient fell possibly 2 days ago. She was brought to the Emergency Room and found to have a left hip fracture. She was admitted to the hospital with UTI. She is awake and alert and oriented to person and time, but not to place or event. Medical note reviewed. Her vital signs are stable. She is chronically anemic with hemoglobin 8.4. Her white count is 22,000, likely secondary to stress and her UTI. Platelet count usually is high and is currently 810,000. BUN is 24. Otherwise, kidney function is normal. Her CK is 56 and the CK-MB is 4.8. UA shows an infection. Her COVID test is negative. Pelvis and femur x-rays show a transcervical femoral neck fracture with displacement. Reports on CT scans of the pelvis, lumbar spine pending. CT of the head negative. PHYSICAL EXAMINATION: Demonstrates pain on movement of the left leg centered at the hip. She has a trace dorsalis pedis pulse. She has 5/5 ankle and toe plantarflexion, dorsiflexion and eversion strength on the left. She can move her head and neck and both upper extremities and the right lower extremity without difficulty. There is no break in the skin, bruising or swelling of the left hip. She has no tenderness of either lower extremity and there is no swelling or pitting edema bilaterally appreciated. IMPRESSION: Left hip fracture. PLAN: I discussed the plan with the patient and her son. Because of the patient's mild confusion, I contacted the son by phone. I discussed with him the situation and obtained informed consent. Plan is to proceed with a left hip hemiarthroplasty today. Treatment options, risks, benefits, rehab and recovery discussed. She has no known drug allergies. She does have chronic kidney disease as well as high blood pressure. She takes vitamin E, multivitamins, glucosamine, iron, and cholecalciferol. Because she was down for a couple days, we will go ahead and get an ultrasound of both lower extremities, to rule out DVT and intervene accordingly. N.p.o. Preoperative antibiotics.
[2020-08-24] MEDS ORDERED: TOCOPHERYL, DL-ALPHA 400 UNITS CAP PO SCH (09:00)
[2020-08-24] MEDS ORDERED: CEROVITE ADV FORMULA TAB PO SCH (09:00)
[2020-08-24] MEDS ORDERED: GLUCOSAMINE SULFATE 500 MG CAP PO SCH (09:00)
[2020-08-24] MEDS ORDERED: SODIUM CHLORIDE 0.9% 250 ML IV PRN ×2 (09:11→19:37)
--- NOTE | 2020-08-24 09:23 | Ultrasound Report ---
US venous doppler LE BI CLINICAL HISTORY: preop, non mobile due to hip fracture x 2 days COMPARISON STUDY: No previous studies for comparison. FINDINGS: Real-time and color flow Doppler imaging were performed. Flow was seen within the femoral, popliteal and calf veins with no intraluminal thrombus demonstrated. The saphenous vein is patent. IMPRESSION: No evidence of lower extremity DVT. ACT 112: Negative or not required by law. Electronically signed by: Papi Rubio M.D. 08/24/2020 9:21 AM
--- NOTE | 2020-08-24 09:48 | History & Physical Bridge Note ---
Date of Service August 24, 2020 History & Physical Bridge Note I have examined the patient, reviewed the History & Physical and in the interval since the performance of the History & Physical I have noted the following changes of clinical significance: Patient evaluated this morning. Pain controlled. Requesting water but aware we need to keep her NPO for procedure. She states previously declining endoscopic eval for possible GI malignancy but discussed CT findings with mass. She states unexplained wt loss approximately 10lb. She is now agreeable to see GI and possibly undergo evaluation due to risks/findings and continued iron def anemia. No family or personal history of colon ca. Brother with bone ca, nothing else. GI consulted -- appreciate assistance Discussed low hemoglobin this morning and giving unit of blood. Patient agreeable and understands risks and awaiting consent with Dr. Charles. Type/cross for 2 units, transfuse 1 unit now Repeat cbc following surgery and transfuse if needed. Denies CP. US Venous Dopplers NEGATIVE for DVT Continue [place] for UTI coverage Increase NSS to 100cc/hr given dehydration and concentrated urine from [place]. Plans for OR later today with Dr. Chand for left hip repair.
--- NOTE | 2020-08-24 10:02 | Gastrointestinal Consultation ---
Date of Consultation August 24, 2020 Assessment & Plan (1) Cecum mass: Patient is an 84 yo female with L hip fracture & incidental finding of a cecal mass. Unfortunately due to the L hip fracture, we would not be able to proceed with colonoscopy evaluation at the present time as she would be unable to be positioned for the procedure. Patient can undergo an outpatient colonoscopy in the coming weeks when cleared by orthopedic service to be positioned on left side. She understands this and agrees with the plan of care. Thank you for allowing us to participate in the care of this patient. If you should have any further questions or concerns, do not hesitate to contact us at [phone] or our office at [phone]. Supervising Physician Co-Signing Physician Notes I personally evaluated the patient and agree with the findings as documented by Mary Reddy, MARTIN Exam: abd: soft, nt, nd will need colonoscopy in 4-6 weeks to evaluate the abnormal findings/possible mass provided she has been cleared by orthopedics by then. will need to lie left lateral for the colonoscopy. History of Present Illness Reason for Consultation: Cecal mass Attending Physician: Anibal Charles MD History of Present Illness Patient is an 84 yo female who presented to [facility] after a recent fall. She reportedly was on the ground for 2 days because she was unable to get up. In the ED, she was noted to have a L hip fracture on imaging. She is being evaluated by orthopedic service and is going to the OR today. Throughout the work-up in the ED, the patient was noted incidentally to have a cecal mass on CT imaging of the pelvis. Patient has had a 10 lb weight loss over recent months. No abdominal pain, diarrhea, or rectal bleeding. H/H presently 7.3/25.7. Despite her current circumstances, Vernell is quite positive. She reports she is feeling okay this morning. She is awaiting a blood transfusion and her surgery. She reports that she has never had a colonoscopy. Allergies Allergy/AdvReac Type Severity Reaction Status Date / Time No Known Drug Allergies Allergy Unknown Verified 08/24/20 00:20 Home Medications Medication Instructions Recorded Confirmed Type cholecalciferol (vitamin D3) 25 1,000 units PO DAILY 04/19/19 08/24/20 History mcg (1,000 unit) capsule glucosamine HCl 1,500 mg tablet 1,500 mg PO DAILY 04/19/19 08/24/20 History multivit with 1 tab PO DAILY 04/19/19 08/24/20 History zsrlwfxu-rkak-FE-lutein 8 mg iron-400 mcg-300 mcg tablet vitamin E (dl, acetate) 400 unit 400 units PO DAILY 04/19/19 08/24/20 History capsule ferrous sulfate 325 mg (65 mg 325 mg PO DAILY #30 tab 04/22/19 08/24/20 Rx iron) tablet Patient History Medical History Anemia Arthritis CKD (chronic kidney disease) stage 3, GFR 30-59 ml/min Dyslipidemia HTN (hypertension) Obesity Prediabetes Surgical History Status post surgery skin gaff to R arm. Family History Brother Coronary heart disease in his 50s Mother Hypertension Father No problems noted. 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 Beliefs That Will Affect Care: None marital status: / Current Living Situation: Alone current occupational status: retired Other Information That Helps Us Care for You: No Feels Safe at Home: Yes Safety Concerns: Feels Safe At This Time Childhood Exposure to Second-Hand Smoke: Yes caffeine: Yes (coffee x 2 cups per day.) during the past year weight has: remained stable Dental Care, Regularly: Yes Physical Activity Frequency: 3-4 Times per Week Seatbelt Use: always Sunscreen Use: Yes Assistive Devices: Glasses Review of Systems Constitutional: + weight loss; no fever and no chills Cardiovascular: no chest pain Gastrointestinal: no abdominal pain, no blood in stools and no melena Psychiatric: no problem reported Physical Exam Constitutional: no acute distress Respiratory: normal respiratory effort Cardiovascular: Extremities: no edema Gastrointestinal (Abdomen): Inspection/Auscultation: abdomen normal to inspection Percussion/Palpation: abdomen soft; abdomen nontender Musculoskeletal: Head/Neck/Chest: + evidence of head trauma (ecchymosis on head) Psychiatric: A+Ox3, euthymic affect Results & Data ([facility]) Vital Signs (Past 12 Hours) Vital Signs Temp Pulse Pulse Resp BP BP Pulse Ox 08/24/20 07:36 36.9 C 99 H 18 115/69 97 08/24/20 03:26 36.5 C 92 H 14 126/75 95 08/24/20 02:04 97 H 18 134/79 93 08/24/20 00:39 99 H 16 144/76 H 95 08/23/20 23:28 37.0 C 110 H 18 110/73 94 PG Care Time/CCT Total # of Minutes Spent Total Time Spent with Patient: Total time spent is greater than 50% in coordination of care (as documented) at patient's floor/unit and/or counseling patient: Coding Level of Care Code 37843 Initial Inpt Care Lvl 3 Diagnoses Cecum mass K63.89
[2020-08-24] MEDS ORDERED: fentaNYL citrate 100 MCG/2 ML VIAL ONE ×2 (12:27→15:08)
--- NOTE | 2020-08-24 13:00 | Anesthesiology Consultation ---
Date of Service August 24, 2020 Assessment & Plan (1) Encounter for pre-operative examination: Chart Review Chart Review: Acceptable Risk for Surgery and Patient NOT seen in Pre Admission Testing Consults Requested none History Surgery Operation Date: 08/24/20 07:55 Proposed Procedures p Left Hip Hemiarthroplasty - Man Chand MD Height/Weight Height: 5 ft 4 in Weight: 68.9 kg Allergies Allergy/AdvReac Type Severity Reaction Status Date / Time No Known Drug Allergies Allergy Unknown Verified 08/24/20 00:20 Medications Home Medications Medication Instructions Recorded Confirmed Last Taken cholecalciferol (vitamin D3) 25 1,000 units PO DAILY 04/19/19 08/24/20 08/23/20 mcg (1,000 unit) capsule glucosamine HCl 1,500 mg tablet 1,500 mg PO DAILY 04/19/19 08/24/20 08/23/20 multivit with 1 tab PO DAILY 04/19/19 08/24/20 08/23/20 iftuskjq-bzvx-CC-lutein 8 mg iron-400 mcg-300 mcg tablet vitamin E (dl, acetate) 400 unit 400 units PO DAILY 04/19/19 08/24/20 08/23/20 capsule ferrous sulfate 325 mg (65 mg 325 mg PO DAILY #30 tab 04/22/19 08/24/20 08/23/20 iron) tablet Active Medications Generic Name Dose Route Start Last Admin Trade Name Freq PRN Reason Stop Dose Admin Glucosamine Sulfate 1,500 mg 08/24/20 09:00 08/24/20 07:33 Glucosamine Sulfate 500 Mg Cap PO 09/23/20 08:59 1,500 mg DAILY PBALO Administration Sodium Chloride 1,000 mls @ 100 mls/hr 08/24/20 02:37 08/24/20 11:16 Nss 1000ml IV 09/23/20 02:36 0 mls/hr .Q10H PABLO Infusion Multivitamins/Minerals 1 tab 08/24/20 09:00 08/24/20 07:33 Cerovite Adv Formula Tab PO 09/23/20 08:59 1 tab DAILY PABLO Administration Vitamin D 1,000 units 08/24/20 09:00 08/24/20 07:33 Cholecalciferol 1,000 Units 25 Mcg Tab PO 09/23/20 08:59 1,000 units DAILY PABLO Administration Vitamin E 400 units 08/24/20 09:00 08/24/20 07:33 Tocopheryl, Dl-Alpha 400 Units Cap PO 09/23/20 08:59 400 units DAILY PABLO Administration NPO Date Last Intake of Fluids: 08/23/20 Time Last Intake of Fluids: 23:59 Date Last Intake of Solids: 08/23/20 Time Last Intake of Solids: 23:59 Past Medical History Medical History Anemia Arthritis CKD (chronic kidney disease) stage 3, GFR 30-59 ml/min Dyslipidemia HTN (hypertension) Obesity Prediabetes Past Family History Family History Brother Coronary heart disease in his 50s Mother Hypertension Father No problems noted. Brother Coronary heart disease Brother Coronary heart disease Denies family history of Ovarian cancer Prostate cancer Myocardial infarction Breast cancer Colorectal cancer Past Surgical History Surgical History Status post surgery skin gaff to R arm. Social History Smoking Status: Never smoker Hx Alcohol Use: No Hx Substance Use: No Physical Exam Vital Signs Last Vital Signs Temp 37.0 C 08/24/20 12:50 Pulse 96 H 08/24/20 12:50 Resp 18 08/24/20 12:50 BP 133/95 08/24/20 12:50 Pulse Ox 97 08/24/20 12:50 Testing Laboratory Results 08/24/20 06:40 08/24/20 06:40 PT 11.1 Seconds (9.0-12.0) 08/24/20 06:40 INR 1.1 (0.9-1.1) 08/24/20 06:40 APTT 25.6 Seconds (21.0-31.0) 08/23/20 23:24 Urine Color Yellow 08/23/20 23:24 Urine Appearance Cloudy (Clear) A 08/23/20 23:24 Urine pH 7.5 (4.5-7.5) 08/23/20 23:24 Ur Specific [place] >= 1.030 (1.000-1.030) 08/23/20 23:24 Urine Protein 2+ (Negative) H 08/23/20 23:24 Urine Glucose (UA) Negative (Negative) 08/23/20 23:24 Urine Ketones Negative (Negative) 08/23/20 23:24 Urine Nitrite Negative (Negative) 08/23/20 23:24 Ur Leukocyte Esterase 3+ (Negative) H 08/23/20 23:24 Urine RBC 0-4 /hpf (0-4) 08/23/20 23:24 Urine WBC >30 /hpf (0-5) H 08/23/20 23:24 Ur Epithelial Cells 5-10 /lpf (0-5) H 08/23/20 23:24 Blood Type A Positive 08/24/20 01:09 Antibody Screen NEGATIVE 08/24/20 01:09 Electrocardiogram Date: 08/23/20 Poor data quality, interpretation may be adversely affected Sinus tachyc ardia Otherwise normal ECG No previous ECGs available HR 109 Chest X-Ray Date: 08/24/20 XR chest 1V portable HISTORY: Pt c/o fall COMPARISON: None. FINDINGS: The lungs are clear. The heart is normal in size. Calcifications within the aortic knob. No effusions. No pneumothorax. No acute rib fractures identified. IMPRESSION: No acute process. Other Testing head CT 08/24/20 CT head/brain wo con CLINICAL HISTORY: Head pain status post trauma COMPARISON STUDY: No previous studies for comparison. TECHNIQUE: Axial CT of the brain is performed from the vertex to the skull base. IV contrast was not administered for this examination. A dose lowering technique was utilized adhering to the principles of ALARA. CT DOSE: 537.48 mGy.cm FINDINGS: No intra or extra-axial mass lesions are visualized. There is no CT evidence of acute cortical infarction. There is no evidence of midline shift. There is no acute hemorrhage. No calvarial fractures are visualized. There are patchy white matter hypodensities likely on a small vessel basis. There is no evidence of pathologic ventricular dilatation. There is complete opacification right maxillary sinus with wall thickening. This indicates a chronic process. Several ethmoid air cells are opacified on the right. IMPRESSION: No acute intracranial findings
[2020-08-24] MEDS ORDERED: TRANEXAMIC ACID / 0.7% NACL 1,000 MG/100 ML BAG IV ONE ×2 (13:14→13:15)
[2020-08-24] MEDS ORDERED: TRANEXAMIC ACID / 0.7% NACL 1000MG/100ML BAG IV ONE (13:17)
[2020-08-24] MEDS ORDERED: ATROPINE SULFATE 0.1 MG/ML 10ML SYR IV PRN (13:22)
[2020-08-24] MEDS ORDERED: fentaNYL citrate 100 MCG/2 ML VIAL IV PRN (13:22)
[2020-08-24] MEDS ORDERED: ePHEDrine sulfate 50 MG/ML AMP IV PRN (13:22)
[2020-08-24] MEDS ORDERED: LIDOCAINE HCL 1% 20 ML VIAL ONE (13:26)
[2020-08-24] MEDS ORDERED: BUPIVACAINE 0.5 % 5 MG/1 ML MPF 30ML VIAL ONE (13:26)
[2020-08-24] MEDS ORDERED: THROMBIN FOR SOLN 20000 UNIT KIT ONE (13:26)
[2020-08-24] MEDS ORDERED: BACITRACIN INJ 50,000 UNIT VIAL ONE (13:26)
[2020-08-24] MEDS ORDERED: TOBRAMYCIN SULFATE 1,200 MG VIAL ONE (14:07)
--- NOTE | 2020-08-24 14:11 | Electrocardiogram Report ---
Test Reason : Blood Pressure : / mmHG Vent. Rate : 109 BPM Atrial Rate : 109 BPM P-R Int : 154 ms QRS Dur : 070 ms QT Int : 348 ms P-R-T Axes : 055 -12 078 degrees QTc Int : 468 ms Poor data quality, interpretation may be adversely affected Sinus tachycardia Otherwise normal ECG No previous ECGs available Confirmed by Marcin Peralta ([id number]) on 08/24/2020 2:11:04 PM Referred By: REFERRED SELF Confirmed By:Marcin Peralta
[2020-08-24] MEDS ORDERED: KETAMINE 50 MG/5 ML SYRINGE ONE (14:44)
[2020-08-24] MEDS ORDERED: ONDANSETRON INJ 2 MG/ML 2 ML VIAL ONE (15:08)
[2020-08-24] MEDS ORDERED: PROPOFOL IV EMULSION 10 MG/ML 20 ML VIAL IV ONE (15:08)
[2020-08-24] MEDS ORDERED: NEOSTIGMINE METHYLSULFATE 5 MG/5 ML SYR ONE (15:08)
[2020-08-24] MEDS ORDERED: GLYCOPYRROLATE 0.2 MG/ML VIAL ONE (15:08)
[2020-08-24] MEDS ORDERED: LIDOCAINE HCL 2% 2 ML VIAL/AMP(20MG/ML) INFIL ONE (15:08)
--- NOTE | 2020-08-24 16:27 | Post Operative Brief Note ---
Immediate Post Op Note v1 Date of Surgery August 24, 2020 Pre & Post Diagnosis Operation Date: 08/24/20 07:55 Pre-Op Diagnosis: LEFT HIP FRACTURE Post-Op Diagnosis: LEFT HIP FRACTURE I identified the patient and participated in the time-out.: Yes Procedure Operation Date: 08/24/20 07:55 Actual Procedures p Left Hip Hemiarthroplasty(Left) - Man Chand MD Surgeon Man Chand MD Office Machines Sales Representative ALIZA gar Estimated Blood Loss 25 Findings Consistent with Post-Op Diagnosis Anesthesia Type General Complications none Disposition Accompanied Patient To Recovery: No Disposition: Recovery Room
[2020-08-24] MEDS ORDERED: TOBRAMYCIN SULFATE 1,200 MG VIAL TOP ONE (16:30)
--- NOTE | 2020-08-24 17:01 | Operative Report ---
Post Operative Report Pre & Post Diagnosis Operation Date: 08/24/20 07:55 Pre-Op Diagnosis: LEFT HIP FRACTURE Post-Op Diagnosis: LEFT HIP FRACTURE I identified the patient and participated in the time-out.: Yes Procedure Operation Date: 08/24/20 07:55 Actual Procedures p Left Hip Hemiarthroplasty(Left) - Man Chand MD Surgeon MOSES Chand MD Data Entry Specialist simone mendoza PA-C Estimated Blood Loss 25 Findings Consistent with Post-Op Diagnosis Specimens see operative report Drains none Complications none Disposition Accompanied Patient To Recovery: Yes Disposition: Recovery Room Indications This 84-year-old female presented to the ED with a left hip fracture. She and her family elected to proceed with surgical intervention after being educated about potential risks and outcomes. Preoperative imaging was obtained. Description of Procedure Patient was taken to the operating room and administered general anesthesia. She was prepped and draped in the usual sterile fashion. Please see Dr. Chand's operative report for specifics of the procedure. I was present for the entire case from initial patient positioning through final wound closure. Assistance was provided in tissue retraction, hemostasis, trial implant placement, final implant placement, and final wound closure. Patient was taken to the recovery room in satisfactory condition. I attest to the content of the Intraoperative Record and any orders documented therein. Any exceptions are noted below.
--- NOTE | 2020-08-24 17:26 | Operative Report (OR) ---
DATE OF OPERATION: 08/24/2020 PREOPERATIVE DIAGNOSIS: Left femoral neck fracture. POSTOPERATIVE DIAGNOSIS: Left femoral neck fracture. PROCEDURE: Cemented left hip bipolar hemiarthroplasty. SURGEON: Man Chand MD. MARINE PROPULSION TECHNICIAN: Gabe Ritter PA-C. No resident or fellow available. ANESTHESIA: General. INDICATIONS FOR PROCEDURE: The patient is an 84-year-old female who fell sustaining a left hip fracture. She has been admitted and worked up by medicine. She is stable for surgical intervention. PROCEDURE IN DETAIL: Informed consent was obtained. A preop surgical timeout was performed. A preop dose of IV antibiotics was given. She was awake, alert, and oriented prior to surgery and knew that she had a left hip fracture and confirmed the operative site. I marked the surgical site with my initials. A preoperative surgical timeout was performed and she received a preoperative dose of IV antibiotics. The anesthetic was administered and she was positioned decubitus with the left side up, held with Stulberg positioner. Axillary roll was inserted. Bony prominences of the upper and lower extremities were inspected and padded. SCDs were used intraoperatively for DVT prophylaxis. Postoperatively, we will place her on Lovenox. The leg was prepped and draped in the usual sterile fashion after pre-scrubbing. A posterior approach to the hip was made followed by division of the iliotibial band and gluteal fascia. The Charnley retractor was inserted and a proliferative trochanteric bursa was removed. The gluteus minimus was dissected off of the joint capsule with an elevator, and the short external rotators and capsule were elevated off of the back of the femoral head and preserved for later repair. Inferior capsule released. The head was easily removed and sized to a 43. Acetabulum looked normal. Ligamentum teres resected. Hemostasis with electrocautery. Attention was turned to the femur. Neck cut was made a fingerbreadth above the lesser trochanter. Box osteotome, canal finder, lateralizing reamer. Broaching began at the smallest size and proceeded up to a 12. She had a tight canal distally and I had to ream up to a size 12 to get the implant seated. Trialing was performed with good fit, fill and stability. The canal was prepped by plugging it distally at the appropriate length, 2 cm distal to the implant. The canal was scrubbed, meticulously dried. Two bags of Simplex with 1 g of tobramycin each were mixed and then while in a doughy state, retrograde filled, pressurized and implant inserted. 20-30 degrees of anteversion, held lateral. After the cement had hardened, trialing again was performed and a 0 neck length gave excellent stability. The final implant was inserted. Meticulous hemostasis was performed. Copious irrigation. The capsule and short external rotators were repaired back to the greater trochanter and hip abductor mechanism with #1 Ethibond. The subcutaneous tissues were closed in layers with 0 and 2-0 Vicryl. Prior to that, the IT band and gluteal fascia was closed with running and interrupted #1 Vicryl, kaitlyn on the skin. Xeroform, 4 x 4's, ABD, foam tape. Hip abduction brace. The patient awakened from anesthesia without difficulty and taken to the recovery room in stable condition. There were no complications. Counts were correct. Blood loss 25 mL. The resected femoral head was sent for specimen. This was a typical femoral neck fracture with normal-appearing bone. She was taken to recovery room in stable condition. She can weightbear as tolerated. Total hip precautions. Lovenox for DVT prophylaxis. Components inserted were the Opal LDFX size 12 stem. We used a 28 mm Opal head, but a 43 shell and liner from [employer]. Distal cementralizer was also applied. I attest to the content of the Intraoperative Record and any orders documented therein. Any exception s are noted below.
--- NOTE | 2020-08-24 18:03 | Anesthesiology Progress Note ---
Date of Service August 24, 2020 Anesthesia Post Procedure Vital Signs Vital Signs: Temp Pulse Pulse Resp BP BP Pulse Ox 08/24/20 17:35 36.7 C 87 22 142/86 H 98 08/24/20 17:25 87 23 172/95 H 08/24/20 17:05 84 28 H 155/88 H 100 08/24/20 16:55 36.6 C 93 H 16 159/84 H 100 08/24/20 12:50 37.0 C 96 H 18 133/95 97 08/24/20 12:18 36.6 C 90 16 134/72 95 08/24/20 11:48 37.0 C 92 H 16 118/71 95 08/24/20 11:33 36.7 C 91 H 18 117/58 L 08/24/20 11:17 36.9 C 99 H 16 120/70 08/24/20 07:36 36.9 C 99 H 18 115/69 97 08/24/20 03:26 36.5 C 92 H 14 126/75 95 08/24/20 02:04 97 H 18 134/79 93 08/24/20 00:39 99 H 16 144/76 H 95 08/23/20 23:28 37.0 C 110 H 18 110/73 94 Pain Intensity Left Hip: Pain Intensity: 3 Transfer of Care Handoff Completed per policy Notes Mental Status: alert / awake / arousable and participated in evaluation Patient Amnestic to Procedure: Yes Nausea / Vomiting: adequately controlled Pain: adequately controlled Airway Patency, RR, SpO2: stable & adequate BP & HR: stable & adequate Hydration State: stable & adequate Anesthetic Complications: no major complications apparent and Pt Satisfied with anesthetic care
--- NOTE | 2020-08-24 18:52 | XRay Report ---
LEFT HIP 2 VIEWS CLINICAL HISTORY: Postoperative examination. FINDINGS: AP and crosstable lateral views of the left hip are correlated with left femoral radiograph s dated 08/23/2020. The skeletal structures are osteopenic. A unipolar left hip arthroplasty is in trinity r-anatomic alignment. No acute fracture is seen. The visualized left hemipelvis appears intact. Skin clips, subcutaneous gas, and soft tissue swelling overlying the left hip are expected postoperative c hanges. IMPRESSION: Expected postoperative findings status post left hip arthroplasty. No acute fracture is s een. Electronically signed by: Eugene Parisi M.D. 08/24/2020 6:51 PM
[2020-08-24 19:05] LABS: Hematocrit (blood only) 32.5 % (37-47); Hemoglobin 10.2 g/dL (12.0-16.0); Mean Corpuscular Hemoglobin 20.6 pg (25-34); Mean Corpuscular Hgb Conc 31.4 g/dL (32-36); Mean Corpuscular Volume 65.7 fL (80-100); Mean Platelet Volume 8.8 fL (7.4-10.4); Platelet Count 618 K/uL (130-400); RDW Coefficient of Variation 26.7 % (11.5-14.5); RDW Standard Deviation 62.4 fL (36.4-46.3); Red Blood Count 4.95 M/uL (4.2-5.4); White Blood Count 23.19 K/uL (4.8-10.8)
--- NOTE | 2020-08-24 21:10 | Billing Data ---
Date of Service August 24, 2020 Coding Level of Care Code 29701 Initial Inpt Care Lvl 3
[2020-08-24] MEDS: DOCUSATE SODIUM/SENNA 50/8.6MG TAB PO SCH (21:58)
[2020-08-25] MEDS ORDERED: CALCIUM CARBONATE 500 MG CHEWABLE TAB PO PRN (00:46)
[2020-08-25] MEDS: SODIUM CHLORIDE 0.9% 1000ML 1,000 ML IV SCH ×2 (03:35→11:17)
[2020-08-25] MEDS: cefTRIAXone SODIUM 1,000 MG in DEXTROSE 5% 50 ML IV SCH (05:52)
[2020-08-25 07:20] LABS: Hematocrit (blood only) 29.3 % (37-47); Hemoglobin 8.9 g/dL (12.0-16.0); Mean Corpuscular Hemoglobin 19.9 pg (25-34); Mean Corpuscular Hgb Conc 30.4 g/dL (32-36); Mean Corpuscular Volume 65.5 fL (80-100); Mean Platelet Volume 8.7 fL (7.4-10.4); Platelet Count 427 K/uL (130-400); RDW Coefficient of Variation 26.1 % (11.5-14.5); RDW Standard Deviation 61.2 fL (36.4-46.3); Red Blood Count 4.47 M/uL (4.2-5.4); White Blood Count 12.55 K/uL (4.8-10.8)
--- NOTE | 2020-08-25 07:46 | Hospitalist Progress Note ---
Date of Service August 25, 2020 Assessment & Plan (1) Hip fracture: 84-year-old female with CKD, prediabetes, dyslipidemia admitted for hip fracture after fall at home. Left hip fracture * Femur and pelvic x-ray showing proximal femur fracture at neck of femur on the left * CT pelvis pending * CT lumbar spine negative for acute compression fractures. Chest x-ray unremarkable * Dr. Chand with [facility] orthopedics consulted * Pain control: * 1 g Tylenol scheduled every 8 hours * 0.5 mg IV Dilaudid as needed every 2 for moderate pain or pre-PT * 1 mg Dilaudid IV every 2 as needed for severe pain or pre-PT * 5 mg oxycodone IR every 6 as needed p.o. for moderate pain * Bowel regimen: * MiraLAX, Dulcolax, docusate/senna ordered POD# 1 s/p LEFT HIP Hemiarthroplasty with Dr. Chand * s/p 2 u PRBC for hgb 7.4 prior to surgery -- currently 8.9 and stable, likely acute blood loss anemia from surgery and dilutional effect from IVF as well as 9cm cecal mass in patient with iron deficiency anemia requiring GI f/u for further evaluation * --> Prior iron studies March 2020 -- Ferritin 11. Prior Apr 2019 low at 7, TIBC 359wnl, iron low at 21. MCV currently 65.5 from 58 on admission * --> MCV 65.5. Add iron studies to AM labs but note patient did receive 2 units PRBC * PT/OT with recs for rehab * Vit D low normal 32.2 and will continue supplementation * WBC trending down -- 12.5k from 22.7k on admission. Continue to treat UTI * d/c IVF given wheezing on exam and dehydration resolved * Labs in AM UTI * Urine sample significant for urine bacteria, leukocyte esterase, epithelial cells, blood most likely indicative of UTI * Patient at this time does not attest to having any urinary symptoms however this could have contributed to her falling over * Urine cx with e.coli, alpha strep both CFU >100,000 * Continue Rocephin 1g IV daily (day 2 of therapy) * Monitor sensitivities Thrombocytosis * Appears to have chronically elevated platelet counts * Highest recorded is today, in the 800s * Patient denies any easy bleeding or clotting, spontaneous bruises * Concerns for GI malignancy based on imaging and to have f/u with GI Iron def anemia * Previously diagnosed * Was initially recommended to have endoscopic evaluation but declined at that time * CT imaging with 9cm cecal mass concerning for malignancy * GI consulted -- plans for outpatient scope once out of post-op period and completed course of DVT prophylaxis * Please arrange f/u appt prior to discharge * s/p 2 u PRBC as above * h/h stable currently but will continue to monitor. * --> Prior iron studies March 2020 -- Ferritin 11. Prior Apr 2019 7, TIBC 359wnl, iron low at 21 * --> MCV 65.5. Add iron studies to AM labs but note patient did receive 2 units PRBC * Continue iron supplementation -- consider twice daily dosing if able to tolerate (she would prefer not) --> consider IV Venofer tomorrow while inpatient if h/h drop CKD III * Cr stable 0.91, eGFR 57 * Avoid nephrotoxic medications, renally dose medications when able * BMP in AM Rhabdomyolysis * CK 356 on admission, likely from being down on the ground AMMONIUM NITRATE NEUTRALIZER * IVF as above with repeat 204 yesterday and continued IVF through this morning * Pain controlled, no need for repeat labs Pre-diabetes * Hx of. Not on medications. Prior A1c 6.2 and repeat this admission 5.7 * Continue diet/exercise * F/u PCP DVT prophylaxis: * SCDs * Lovenox SQ Dispo: continued inpatient stay. likely some rehab at / based on PT/OT --> recs for rehab at / Will discuss w CM and have them speak with son about facilities Admission and Anticipated Discharge Date Admission Date: August 24, 2020 Subjective Patient evaluated this morning. Doing well. Pain controlled. Soreness to her left hip but tolerable and only taking Tylenol. Blood counts stable -- no chest pain or shortness of breath reported, fevers or chills. Resumed iron supplementation and discussed possible IV transfusion based on AM labs to top her off but will have GI f/u for scope for eval of cecal mass. Discussed with granddaughter and planning for discussion with son JOE this afternoon for update. Eating/drinking without issue. Passing lots of gas but no BM. Not worked with therapy yet but agreeable to rehab at d/ likely tomorrow or next day. UTI with ecoli/alpha strep and continuing abx until sensitivities returned. ENd expiratory wheezing but no shortness of breath reported. Will d/c IVF. Questions/concerns addressed at this time. Review of Systems Review of Systems: All systems reviewed & are unremarkable except as noted in HPI & below Physical Exam Constitutional: WD/WN, vitals as above (sitting up in chair, appears comfortable) no acute distress Eyes: + anicteric sclerae and PERRL ENMT: mmm Neck: normal visual inspection and trachea midline Respiratory: normal respiratory effort; no labored breathing Auscultation: + diminished lung sounds and + wheezes (faint end expiratory wheezing) Cardiovascular: Rate/Rhythm: regular rate and regular rhythm Vessels: no JVD Extremities: no edema Gastrointestinal (Abdomen): normal bowel sounds, soft, nontender, no hepatosplenomegaly Musculoskeletal: dressing to Left hip c/d/i tender to palpation Skin: cool, dry Neurologic: PERRL, EOMI, accommodation nl, no face palsy, no dysarthria Psychiatric: Orientation: alert, oriented x 3 and cooperative Genitourinary: scott draining yellow urine Lymphatic: no cervical or axillary lymphadenopathy Results & Data Results & Data ([facility]) Vital Signs (Past 12 Hours) Vital Signs Temp Pulse Resp BP Pulse Ox 08/25/20 07:43 36.6 C 98 H 18 138/76 94 08/25/20 03:50 37.0 C 93 H 16 130/73 94 08/24/20 23:23 36.8 C 97 H 16 145/78 H 93 08/24/20 20:55 36.7 C 93 H 16 138/78 96 08/24/20 20:10 36.8 C 92 H 16 133/78 97 Laboratory Results 08/25/20 08/25/20 08/25/20 Range/Units 06:57 06:57 06:57 WBC 12.55 H D (4.8-10.8) K/uL RBC 4.47 (4.2-5.4) M/uL Hgb 8.9 L (12.0-16.0) g/dL Hct 29.3 L (37-47) % MCV 65.5 L (80-100) fL MCH 19.9 L (25-34) pg MCHC 30.4 L (32-36) g/dL RDW Std Deviation 61.2 H (36.4-46.3) fL RDW Coeff of Gonzalez 26.1 H (11.5-14.5) % Plt Count 427 H (130-400) K/uL MPV 8.7 (7.4-10.4) fL Immature Gran % (Auto) 0.4 % Neut % (Auto) 79.9 % Lymph % (Auto) 8.7 % Routt % (Auto) 10.3 % Eos % (Auto) 0.6 % Baso % (Auto) 0.1 % Neut # (Auto) 10.03 H (1.4-6.5) K/uL Lymph # (Auto) 1.09 L (1.2-3.4) K/uL Routt # (Auto) 1.29 H (0.11-0.59) K/uL Eos # (Auto) 0.08 (0-0.5) K/uL Baso # (Auto) 0.01 (0-0.2) K/uL Immature Gran # (Auto) 0.05 H (0.00-0.02) K/uL Hypochromasia Present Anisocytosis Present Microcytosis Present Sodium 139 (136-145) mmol/L Potassium 4.0 (3.5-5.1) mmol/L Chloride 109 H (98-107) mmol/L Carbon Dioxide 24 (21-32) mmol/L Anion Gap 6.0 (3-11) BUN 15 (7-18) mg/dl Creatinine 0.91 (0.6-1.2) mg/dl Est Cr Clr Drug Dosing 42.3 ml/min Est GFR ( Amer) 66.2 Est GFR (Non-Af Amer) 57.1 BUN/Creatinine Ratio 16.3 (10-20) Glucose 128 H (70-99) mg/dl Calcium 8.1 L (8.5-10.1) mg/dl Prealbumin 7.3 L (20-40) mg/dl 25-OH Vitamin D Total 32.2 (30-100) ng/ml Blood Type Antibody Screen Crossmatch 08/24/20 08/24/20 Range/Units 18:35 01:09 WBC 23.19 H (4.8-10.8) K/uL RBC 4.95 (4.2-5.4) M/uL Hgb 10.2 L (12.0-16.0) g/dL Hct 32.5 L (37-47) % MCV 65.7 L D (80-100) fL MCH 20.6 L (25-34) pg MCHC 31.4 L (32-36) g/dL RDW Std Deviation 62.4 H (36.4-46.3) fL RDW Coeff of Gonzalez 26.7 H (11.5-14.5) % Plt Count 618 H (130-400) K/uL MPV 8.8 (7.4-10.4) fL Immature Gran % (Auto) % Neut % (Auto) % Lymph % (Auto) % Routt % (Auto) % Eos % (Auto) % Baso % (Auto) % Neut # (Auto) (1.4-6.5) K/uL Lymph # (Auto) (1.2-3.4) K/uL Routt # (Auto) (0.11-0.59) K/uL Eos # (Auto) (0-0.5) K/uL Baso # (Auto) (0-0.2) K/uL Immature Gran # (Auto) (0.00-0.02) K/uL Hypochromasia Anisocytosis Microcytosis Sodium (136-145) mmol/L Potassium (3.5-5.1) mmol/L Chloride (98-107) mmol/L Carbon Dioxide (21-32) mmol/L Anion Gap (3-11) BUN (7-18) mg/dl Creatinine (0.6-1.2) mg/dl Est Cr Clr Drug Dosing ml/min Est GFR ( Amer) Est GFR (Non-Af Amer) BUN/Creatinine Ratio (10-20) Glucose (70-99) mg/dl Calcium (8.5-10.1) mg/dl Prealbumin (20-40) mg/dl 25-OH Vitamin D Total (30-100) ng/ml Blood Type A Positive Antibody Screen NEGATIVE Crossmatch See Detail PG Care Time/CCT Total # of Minutes Spent Total Time Spent with Patient: Total time spent is greater than 50% in coordination of care (as documented) at patient's floor/unit and/or counseling patient: Coding Level of Care Code 00897 Subseq Hosp Care Lvl 3 Diagnoses Hip fracture S72.002A Encounter type: initial encounter Fracture type: closed Laterality: left (1) Hip fracture Encounter type: initial encounter Fracture type: closed Laterality: left Qualified Code(s): S72.002A - Fracture of unspecified part of neck of left femur, initial encounter for closed fracture
[2020-08-25 07:49] LABS: Anisocytosis Present; Basophils # (auto) 0.01 K/uL (0-0.2); Basophils % (auto) 0.1 %; Eosinophils # (auto) 0.08 K/uL (0-0.5); Eosinophils % (auto) 0.6 %; Hypochromasia Present; Immature Granulocytes # (auto) 0.05 K/uL (0.00-0.02); Immature Granulocytes % (auto) 0.4 %; Lymphocytes # (auto) 1.09 K/uL (1.2-3.4); Lymphocytes % (auto) 8.7 %; Microcytosis Present; Monocytes # (auto) 1.29 K/uL (0.11-0.59); Monocytes % (auto) 10.3 %; Neutrophils # (auto) 10.03 K/uL (1.4-6.5); Neutrophils % (auto) 79.9 %
[2020-08-25 07:54] LABS: BUN Creatinine Ratio 16.3 (10-20); Calcium 8.1 mg/dl (8.5-10.1); Creatinine Clr Calc Pharmacy 42.3 ml/min; Est GFR (African American) 66.2; Est GFR (Non-African American) 57.1; Prealbumin 7.3 mg/dl (20-40)
--- NOTE | 2020-08-25 08:16 | Progress Notes ---
DATE: 08/25/2020 SUBJECTIVE: An 84-year-old white female postop day 1 from a left bipolar hip arthroplasty for fracture. She is doing well this morning. Denies any significant pain. No new complaints. OBJECTIVE: VITAL SIGNS: Temperature 37.0. Vital signs stable. GENERAL: A pleasant elderly female. She is lying in bed, looks comfortable. EXTREMITIES: Examination of left hip reveals the dressing to be clean, dry and intact. Her leg is well aligned. She can dorsiflex and plantarflex her foot appropriately. She is neurologically intact. LABORATORY DATA: Hemoglobin 8.9. Hematocrit 29.3. White cell count 12.55. Electrolytes are pending. ASSESSMENT: An 84-year-old white female postoperative day 1 from a left bipolar hip arthroplasty for fracture. She is doing well. Her pain is controlled. Hip is located. She is neurologically intact. PLAN: 1. DVT prophylaxis including thigh-high TEDs, SCDs, and Lovenox 40 mg once a day, begin 24 hours postop. 2. PT/OT. She can weightbear as tolerated. Needs to obey hip precautions. 3. Pain control, doing okay with current pain regimen. 4. Medical management as per the medicine service. 5. Disposition: She is going to need a rehab stay versus [facility] facility stay. Social service is working on that. She will likely be orthopedically okay for discharge any time after any time, likely Thursday or Thursday.
[2020-08-25] MEDS: ENOXAPARIN INJ 40 MG/0.4 ML SYR SQ SCH (09:39)
[2020-08-25] MEDS: CHOLECALCIFEROL 1,000 UNITS 25 MCG TAB PO SCH (09:41)
[2020-08-25] MEDS: FERROUS SULFATE 325 MG TAB PO SCH (10:36)
[2020-08-25] MEDS: MULTIVITAMIN TAB PO SCH (13:04)
[2020-08-25] MEDS: CYANOCOBALAMIN 500 MCG TABLET (VITAMIN B-12) PO SCH (13:04)
[2020-08-25] MEDS ORDERED: ERGOCALCIFEROL 50,000 UNITS 1250 MCG CAP PO ONE (17:00)
--- NOTE | 2020-08-25 17:24 | XRay Report ---
KUB HISTORY: Acute vomiting with possible small bowel obstruction vomiting, cecal mass, ?sbo COMPARISON: CT abdomen pelvis 08/24/2020 FINDINGS: The bowel gas pattern is nonobstructive. Moderate fecal retention of the rectum. Calcified plaque the abdominal aorta. Degenerative changes of the spine, pelvis and right hip. Interval left hi p total joint arthroplasty with overlying skin kaitlyn. No renal calculi. No ureteral calculi. No pn eumoperitoneum or pneumatosis. IMPRESSION: Nonobstructive bowel gas pattern. ACT 112: Negative or not required by law. The above report was generated using voice recognition software. It may contain grammatical, syntax o r spelling errors. Electronically signed by: Reece Graff M.D. 08/25/2020 5:22 PM
[2020-08-25] MEDS ORDERED: POLYETHYLENE (MIRALAX) 17 GM PACK PO ONE (17:45)
[2020-08-25] MEDS: DOCUSATE SODIUM/SENNA 50/8.6MG TAB PO SCH (20:18)
[2020-08-26] MEDS: cefTRIAXone SODIUM 1,000 MG in DEXTROSE 5% 50 ML IV SCH (05:39)
[2020-08-26 05:59] LABS: Basophils # (auto) 0.02 K/uL (0-0.2); Basophils % (auto) 0.2 %; Eosinophils # (auto) 0.27 K/uL (0-0.5); Eosinophils % (auto) 2.4 %; Hematocrit (blood only) 25.7 % (37-47); Hemoglobin 7.9 g/dL (12.0-16.0); Immature Granulocytes # (auto) 0.13 K/uL (0.00-0.02); Immature Granulocytes % (auto) 1.1 %; Lymphocytes # (auto) 1.38 K/uL (1.2-3.4); Lymphocytes % (auto) 12.2 %; Mean Corpuscular Hemoglobin 19.9 pg (25-34); Mean Corpuscular Hgb Conc 30.7 g/dL (32-36); Mean Corpuscular Volume 64.9 fL (80-100); Mean Platelet Volume 8.7 fL (7.4-10.4); Monocytes # (auto) 1.38 K/uL (0.11-0.59); Monocytes % (auto) 12.2 %; Neutrophils # (auto) 8.14 K/uL (1.4-6.5); Neutrophils % (auto) 71.9 %; Platelet Count 381 K/uL (130-400); RDW Coefficient of Variation 26.7 % (11.5-14.5); RDW Standard Deviation 62.2 fL (36.4-46.3); Red Blood Count 3.96 M/uL (4.2-5.4); White Blood Count 11.32 K/uL (4.8-10.8)
[2020-08-26 06:28] LABS: Albumin Level 1.8 gm/dl (3.4-5.0); BUN Creatinine Ratio 17.2 (10-20); Calcium 7.5 mg/dl (8.5-10.1); Creatinine Clr Calc Pharmacy 59.2 ml/min; Est GFR (African American) 93.2; Est GFR (Non-African American) 80.4; Potassium 3.6 mmol/L (3.5-5.1)
[2020-08-26 06:33] LABS: Albumin Globulin Ratio 0.5 (0.9-2); Bilirubin,Total 0.3 mg/dl (0.2-1); Ferritin 69.8 ng/ml (8-388); Globulin 3.7 gm/dl (2.5-4.0); Total Protein 5.5 gm/dl (6.4-8.2)
[2020-08-26 06:34] LABS: Anisocytosis Present; Hypochromasia Present; Microcytosis Present; Ovalocytes 1+
[2020-08-26 06:57] LABS: Folate (Folic Acid) > 20.00 ng/ml (>5.38); Vitamin B12 > 2000 pg/ml (193-986)
[2020-08-26] MEDS ORDERED: SODIUM CHLORIDE 0.9% 250 ML IV PRN (08:29)
[2020-08-26] MEDS ORDERED: IRON SUCROSE 300 MG in SODIUM CHLORIDE 0.9% 250 ML IV ONE (08:29)
--- NOTE | 2020-08-26 08:29 | Hospitalist Progress Note ---
Date of Service August 26, 2020 Assessment & Plan (1) Hip fracture: 84-year-old female with CKD, prediabetes, dyslipidemia admitted for hip fracture after fall at home. Left hip fracture * Femur and pelvic x-ray showing proximal femur fracture at neck of femur on the left * CT pelvis pending * CT lumbar spine negative for acute compression fractures. Chest x-ray unremarkable * Dr. Chand with [facility] orthopedics consulted * Pain control: * 1 g Tylenol scheduled every 8 hours * 0.5 mg IV Dilaudid as needed every 2 for moderate pain or pre-PT * 1 mg Dilaudid IV every 2 as needed for severe pain or pre-PT * 5 mg oxycodone IR every 6 as needed p.o. for moderate pain * Bowel regimen: * MiraLAX, Dulcolax, docusate/senna ordered POD# 2 s/p LEFT HIP Hemiarthroplasty with Dr. Chand * s/p 2 u PRBC for hgb 7.4 prior to surgery -- currently 8.9 and stable, likely acute blood loss anemia from surgery and dilutional effect from IVF as well as 9cm cecal mass in patient with iron deficiency anemia requiring GI f/u for further evaluation * --> Prior iron studies March 2020 -- Ferritin 11. Prior Apr 2019 low at 7, TIBC 359wnl, iron low at 21. MCV currently 65.5 from 58 on admission * --> MCV 65.5. Add iron studies to AM labs but note patient did receive 2 units PRBC * --> 1 additional unit PRBC and 1 dose IV Venofer for today (08/26) for Hgb 7.9 * --> Iron low at 9, TIBC 159L, transfer 125L, trans % sat 5L * PT/OT with recs for rehab -- discussed with son Gatito (POA) evening 08/25 and he wants his mother to go to rehab near him in [place] as he plans on having her move in with him after. CM following * Vit D low normal 32.2 and will continue supplementation * WBC trending down -- 11.3k from 22.7k on admission. Continue to treat UTI -- will switch to keflex PO * d/c IVF given wheezing on exam and dehydration resolved * Labs in AM UTI * Urine sample significant for urine bacteria, leukocyte esterase, epithelial cells, blood most likely indicative of UTI * Patient at this time does not attest to having any urinary symptoms however this could have contributed to her falling over * Urine cx with e.coli, alpha strep both CFU >100,000 * Continue Rocephin 1g IV daily (day 3 of therapy) -- switch to Keflex PO for tomorrow morning ordered * Monitor sensitivities Thrombocytosis * Appears to have chronically elevated platelet counts * Highest recorded is today, in the 800s * Patient denies any easy bleeding or clotting, spontaneous bruises * Concerns for GI malignancy based on imaging and to have f/u with GI Iron def anemia * Previously diagnosed * Was initially recommended to have endoscopic evaluation but declined at that time * CT imaging with 9cm cecal mass concerning for malignancy * GI consulted -- plans for outpatient scope once out of post-op period and completed course of DVT prophylaxis * Please arrange f/u appt prior to discharge * s/p 2 u PRBC as above * h/h stable currently but will continue to monitor. * --> Prior iron studies March 2020 -- Ferritin 11. Prior Apr 2019 7, TIBC 359wnl, iron low at 21 * --> Iron low at 9, TIBC 159L, transfer 125L, trans % sat 5L. Venofer IV for today and will continue daily dosing for next 2 days while inpatient and awaiting bed/[place] for rehab * Continuing daily iron PO supp once finished with Venofer. She would not be able to tolerate BID dosing per patient CKD III * Cr stable 0.65 * Avoid nephrotoxic medications, renally dose medications when able * BMP in AM Rhabdomyolysis * CK 356 on admission, likely from being down on the ground [employer] * IVF as above with repeat 204 yesterday and continued IVF through morning 08/25 * Pain controlled, no need for repeat labs Pre-diabetes * Hx of. Not on medications. Prior A1c 6.2 and repeat this admission 5.7 * Continue diet/exercise * F/u PCP DVT prophylaxis: * SCDs * Lovenox SQ Dispo: continued inpatient stay. likely some rehab at d/ based on PT/OT --> recs for rehab at d/c Will discuss w CM and have them speak with son about facilities Admission and Anticipated Discharge Date Admission Date: August 24, 2020 Subjective Patient evaluated this morning.Discussed low hemoglobin and iron studies. Giving 1 additional unit PRBC and will scheduled daily Venofer while inpatient. She states she would like to get her iron stores boosted because she does endorse weakness and fatigue. Patient and I discussed conversation with son Gatito who is her POA and plans for rehab in [facility]. She states she has a house to sell but that is the current plan. She is aware that it is rehab directly from the hospital. Pain to her hip controlled. Some discomfort to her heel but improved with pillow. No fever, chills, chest pain, shortness of breath, abdominal pain, nausea or vomiting. Did have episode of yellow phelgm/emesis yesterday but nothing since that time. Review of Systems Review of Systems: All systems reviewed & are unremarkable except as noted in HPI & below Physical Exam Constitutional: WD/WN, vitals as above (sitting up in chair, appears comfortable) no acute distress Eyes: + anicteric sclerae and PERRL ENMT: mmm Neck: normal visual inspection and trachea midline Respiratory: normal respiratory effort; no labored breathing Auscultation: + diminished lung sounds and + wheezes (faint end expiratory wheezing) Cardiovascular: Rate/Rhythm: regular rate and regular rhythm Vessels: no JVD Extremities: no edema Gastrointestinal (Abdomen): normal bowel sounds, soft, nontender, no hepat osplenomegaly Musculoskeletal: left hip dressing c/d/i tender to palpation about incision NVI pulses palpable bilaterally Neurologic: PERRL, EOMI, accommodation nl, no face palsy, no dysarthria Psychiatric: Orientation: alert, oriented x 3 and cooperative Lymphatic: no cervical or axillary lymphadenopathy Results & Data Results & Data ([facility]) Vital Signs (Past 12 Hours) Vital Signs Temp Pulse Resp BP Pulse Ox 08/26/20 08:27 36.7 C 93 H 18 153/74 H 95 08/25/20 22:30 36.9 C 95 H 20 132/72 93 08/25/20 20:00 37.4 C 94 H 20 136/68 94 Laboratory Results 08/26/20 08/26/20 08/26/20 Range/Units 05:23 05:23 05:23 WBC 11.32 H (4.8-10.8) K/uL RBC 3.96 L (4.2-5.4) M/uL Hgb 7.9 L (12.0-16.0) g/dL Hct 25.7 L (37-47) % MCV 64.9 L (80-100) fL MCH 19.9 L (25-34) pg MCHC 30.7 L (32-36) g/dL RDW Std Deviation 62.2 H (36.4-46.3) fL RDW Coeff of Gonzalez 26.7 H (11.5-14.5) % Plt Count 381 (130-400) K/uL MPV 8.7 (7.4-10.4) fL Immature Gran % (Auto) 1.1 % Neut % (Auto) 71.9 % Lymph % (Auto) 12.2 % Kleberg % (Auto) 12.2 % Eos % (Auto) 2.4 % Baso % (Auto) 0.2 % Neut # (Auto) 8.14 H (1.4-6.5) K/uL Lymph # (Auto) 1.38 (1.2-3.4) K/uL Kleberg # (Auto) 1.38 H (0.11-0.59) K/uL Eos # (Auto) 0.27 (0-0.5) K/uL Baso # (Auto) 0.02 (0-0.2) K/uL Immature Gran # (Auto) 0.13 H (0.00-0.02) K/uL Hypochromasia Present Anisocytosis Present Microcytosis Present Ovalocytes 1+ Sodium 138 (136-145) mmol/L Potassium 3.6 (3.5-5.1) mmol/L Chloride 109 H (98-107) mmol/L Carbon Dioxide 25 (21-32) mmol/L Anion Gap 4.0 (3-11) BUN 11 (7-18) mg/dl Creatinine 0.65 (0.6-1.2) mg/dl Est Cr Clr Drug Dosing 59.2 ml/min Est GFR ( Amer) 93.2 Est GFR (Non-Af Amer) 80.4 BUN/Creatinine Ratio 17.2 (10-20) Glucose 89 (70-99) mg/dl Calcium 7.5 L (8.5-10.1) mg/dl Iron 9 L (35-150) mcg/dl TIBC 159 L (250-450) mcg/dl Transferrin 125 L (200-360) mg/dl Transferrin % Sat 5 L (15-50) % Ferritin 69.8 (8-388) ng/ml Total Bilirubin 0.3 (0.2-1) mg/dl AST 20 (15-37) U/L ALT 16 (12-78) U/L Alkaline Phosphatase 63 (45-117) U/L Total Protein 5.5 L (6.4-8.2) gm/dl Albumin 1.8 L (3.4-5.0) gm/dl Globulin 3.7 (2.5-4.0) gm/dl Albumin/Globulin Ratio 0.5 L (0.9-2) Prealbumin (20-40) mg/dl Vitamin B12 > 2000 H (193-986) pg/ml 25-OH Vitamin D Total (30-100) ng/ml Folate > 20.00 (>5.38) ng/ml Blood Type Antibody Screen Crossmatch 08/25/20 08/25/20 08/25/20 Range/Units 06:57 06:57 06:57 WBC (4.8-10.8) K/uL RBC (4.2-5.4) M/uL Hgb (12.0-16.0) g/dL Hct (37-47) % MCV (80-100) fL MCH (25-34) pg MCHC (32-36) g/dL RDW Std Deviation (36.4-46.3) fL RDW Coeff of Gonzalez (11.5-14.5) % Plt Count (130-400) K/uL MPV (7.4-10.4) fL Immature Gran % (Auto) 0.4 % Neut % (Auto) 79.9 % Lymph % (Auto) 8.7 % Kleberg % (Auto) 10.3 % Eos % (Auto) 0.6 % Baso % (Auto) 0.1 % Neut # (Auto) 10.03 H (1.4-6.5) K/uL Lymph # (Auto) 1.09 L (1.2-3.4) K/uL Kleberg # (Auto) 1.29 H (0.11-0.59) K/uL Eos # (Auto) 0.08 (0-0.5) K/uL Baso # (Auto) 0.01 (0-0.2) K/uL Immature Gran # (Auto) 0.05 H (0.00-0.02) K/uL Hypochromasia Present Anisocytosis Present Microcytosis Present Ovalocytes Sodium 139 (136-145) mmol/L Potassium 4.0 (3.5-5.1) mmol/L Chloride 109 H (98-107) mmol/L Carbon Dioxide 24 (21-32) mmol/L Anion Gap 6.0 (3-11) BUN 15 (7-18) mg/dl Creatinine 0.91 (0.6-1.2) mg/dl Est Cr Clr Drug Dosing 42.3 ml/min Est GFR ( Amer) 66.2 Est GFR (Non-Af Amer) 57.1 BUN/Creatinine Ratio 16.3 (10-20) Glucose 128 H (70-99) mg/dl Calcium 8.1 L (8.5-10.1) mg/dl Iron (35-150) mcg/dl TIBC (250-450) mcg/dl Transferrin (200-360) mg/dl Transferrin % Sat (15-50) % Ferritin (8-388) ng/ml Total Bilirubin (0.2-1) mg/dl AST (15-37) U/L ALT (12-78) U/L Alkaline Phosphatase (45-117) U/L Total Protein (6.4-8.2) gm/dl Albumin (3.4-5.0) gm/dl Globulin (2.5-4.0) gm/dl Albumin/Globulin Ratio (0.9-2) Prealbumin 7.3 L (20-40) mg/dl Vitamin B12 (193-986) pg/ml 25-OH Vitamin D Total 32.2 (30-100) ng/ml Folate (>5.38) ng/ml Blood Type Antibody Screen Crossmatch 08/24/20 Range/Units 01:09 WBC (4.8-10.8) K/uL RBC (4.2-5.4) M/uL Hgb (12.0-16.0) g/dL Hct (37-47) % MCV (80-100) fL MCH (25-34) pg MCHC (32-36) g/dL RDW Std Deviation (36.4-46.3) fL RDW Coeff of Gonzalez (11.5-14.5) % Plt Count (130-400) K/uL MPV (7.4-10.4) fL Immature Gran % (Auto) % Neut % (Auto) % Lymph % (Auto) % Kleberg % (Auto) % Eos % (Auto) % Baso % (Auto) % Neut # (Auto) (1.4-6.5) K/uL Lymph # (Auto) (1.2-3.4) K/uL Kleberg # (Auto) (0.11-0.59) K/uL Eos # (Auto) (0-0.5) K/uL Baso # (Auto) (0-0.2) K/uL Immature Gran # (Auto) (0.00-0.02) K/uL Hypochromasia Anisocytosis Microcytosis Ovalocytes Sodium (136-145) mmol/L Potassium (3.5-5.1) mmol/L Chloride (98-107) mmol/L Carbon Dioxide (21-32) mmol/L Anion Gap (3-11) BUN (7-18) mg/dl Creatinine (0.6-1.2) mg/dl Est Cr Clr Drug Dosing ml/min Est GFR ( Amer) Est GFR (Non-Af Amer) BUN/Creatinine Ratio (10-20) Glucose (70-99) mg/dl Calcium (8.5-10.1) mg/dl Iron (35-150) mcg/dl TIBC (250-450) mcg/dl Transferrin (200-360) mg/dl Transferrin % Sat (15-50) % Ferritin (8-388) ng/ml Total Bilirubin (0.2-1) mg/dl AST (15-37) U/L ALT (12-78) U/L Alkaline Phosphatase (45-117) U/L Total Protein (6.4-8.2) gm/dl Albumin (3.4-5.0) gm/dl Globulin (2.5-4.0) gm/dl Albumin/Globulin Ratio (0.9-2) Prealbumin (20-40) mg/dl Vitamin B12 (193-986) pg/ml 25-OH Vitamin D Total (30-100) ng/ml Folate (>5.38) ng/ml Blood Type A Positive Antibody Screen NEGATIVE Crossmatch See Detail PG Care Time/CCT Total # of Minutes Spent Total Time Spent with Patient: Total time spent is greater than 50% in coordination of care (as documented) at patient's floor/unit and/or counseling patient: Coding Level of Care Code 25964 Subseq Hosp Care Lvl 3 Diagnoses Hip fracture S72.002A Encounter type: initial encounter Fracture type: closed Laterality: left (1) Hip fracture Encounter type: initial encounter Fracture type: closed Laterality: left Qualified Code(s): S72.002A - Fracture of unspecified part of neck of left femur, initial encounter for closed fracture
[2020-08-26] MEDS: PANTOprazole 40 MG TAB PO SCH (08:57)
[2020-08-26] MEDS: CYANOCOBALAMIN 500 MCG TABLET (VITAMIN B-12) PO SCH (08:58)
[2020-08-26] MEDS: MULTIVITAMIN TAB PO SCH (08:58)
[2020-08-26] MEDS: FERROUS SULFATE 325 MG TAB PO SCH (08:58)
[2020-08-26] MEDS: CHOLECALCIFEROL 1,000 UNITS 25 MCG TAB PO SCH (08:58)
[2020-08-26] MEDS: ENOXAPARIN INJ 40 MG/0.4 ML SYR SQ SCH (08:59)
[2020-08-26] MEDS: POLYETHYLENE (MIRALAX) 17 GM PACK PO SCH (08:59)
[2020-08-26] MEDS: oxyCODONE HCL IR 5 MG TAB (IMMEDIATE RELEASE) PO PRN ×2 (09:11→20:38)
--- NOTE | 2020-08-26 09:18 | Progress Notes ---
DATE: 08/26/2020 SUBJECTIVE: An 84-year-old white female postop day 2 from a left cemented bipolar hip arthroplasty for fracture. She is doing well. Really not having much pain. She got up and walked some yesterday and did pretty well. OBJECTIVE: VITAL SIGNS: Temperature 36.9. Vital signs stable. GENERAL: Shows a pleasant elderly female. She is lying in bed. She is awake, alert and oriented. EXTREMITIES: Examination of the left hip reveals the incision site to be clean, dry with some mild swelling. No drainage. Her hip is located. Leg lengths were equal. She can flex and extend her toes slightly. Brisk refill. ASSESSMENT: An 84-year-old white female postoperative day 2 from a left cemented bipolar hip arthroplasty for fracture. She is doing well. Pain is controlled. Hip is located. She appears neurologically stable. PLAN: 1. DVT prophylaxis including thigh-high TEDs, SCDs, and aspirin twice a day. 2. PT/OT. She can weightbear as tolerated. Left total hip protocol. 3. Pain control, doing well with current pain regimen. 4. Disposition. The patient is likely going to need a rehab or senior living facility. Social service is working on this.
[2020-08-26] MEDS: DOCUSATE SODIUM/SENNA 50/8.6MG TAB PO SCH (20:39)
[2020-08-27] MEDS ORDERED: cephALEXin 250 MG CAP PO ONE (06:00)
[2020-08-27] MEDS: cephALEXin 250 MG CAP PO SCH ×5 (06:36→21:17)
[2020-08-27 07:08] LABS: Hematocrit (blood only) 29.8 % (37-47); Hemoglobin 9.3 g/dL (12.0-16.0); Mean Corpuscular Hemoglobin 20.9 pg (25-34); Mean Corpuscular Hgb Conc 31.2 g/dL (32-36); Mean Corpuscular Volume 67.1 fL (80-100); Mean Platelet Volume 8.4 fL (7.4-10.4); Platelet Count 341 K/uL (130-400); RDW Coefficient of Variation 27.6 % (11.5-14.5); RDW Standard Deviation 65.7 fL (36.4-46.3); Red Blood Count 4.44 M/uL (4.2-5.4); White Blood Count 10.18 K/uL (4.8-10.8)
[2020-08-27 07:32] LABS: BUN Creatinine Ratio 13.4 (10-20); Creatinine Clr Calc Pharmacy 62.1 ml/min; Est GFR (African American) 94.6; Est GFR (Non-African American) 81.6; Potassium 3.7 mmol/L (3.5-5.1)
[2020-08-27] MEDS: oxyCODONE HCL IR 5 MG TAB (IMMEDIATE RELEASE) PO PRN (07:39)
[2020-08-27] MEDS: PANTOprazole 40 MG TAB PO SCH (07:55)
[2020-08-27] MEDS: MULTIVITAMIN TAB PO SCH (07:55)
[2020-08-27] MEDS: CYANOCOBALAMIN 500 MCG TABLET (VITAMIN B-12) PO SCH (07:56)
[2020-08-27] MEDS: ENOXAPARIN INJ 40 MG/0.4 ML SYR SQ SCH (07:56)
[2020-08-27] MEDS: CHOLECALCIFEROL 1,000 UNITS 25 MCG TAB PO SCH (07:56)
[2020-08-27] MEDS: POLYETHYLENE (MIRALAX) 17 GM PACK PO SCH (07:57)
[2020-08-27] MEDS ORDERED: IRON SUCROSE 200 MG in 0.9 % SODIUM CHLORIDE 100 ML IV ONE ×2 (08:00→09:45)
--- NOTE | 2020-08-27 13:04 | Orthopedic Progress Note ---
Date of Service August 27, 2020 Assessment & Plan (1) S/P hip hemiarthroplasty: Total hip precautions PT/OT Weightbearing as tolerated with walker assistance Abduction pillow use x6 weeks Pain control with p.o. medication New dressing applied over incision site this morning by KERVIN Case management assessment: Patient states that she is planning on going to a rehab facility Ice with EZ WRAP Additional medications and DVT prophylaxis per medicine service Follow-up with Dr. Chand in 2 weeks for staple removal With questions contact our clinic at: [phone] Admission and Anticipated Discharge Date Admission Date: August 24, 2020 Subjective This 84-year-old female is 3 days status post left hip hemiarthroplasty. She states that she has no pain in her hip today however she states that her left ankle hurts a little bit on the medial aspect. She denies chest pain, shortness of breath, fever, chills, sweats, lethargy. She states that she did have some weakness over the weekend which has been much better this morning. She states that last night her dressing on her wound was starting to peel and one of the nurses removed it but did not apply a new one. Review of Systems Review of Systems: All systems reviewed & are unremarkable except as noted in Subjective Physical Exam Physical Exam: Left Hip: wound not covered. [place] intact. Mild edema. No erythema, ecchymosis, warmth, fluctuance or drainage noted. Patient is able to actively dorsi and plantarflex her foot. There is some mild edema to the medial aspect of her ankle with tenderness to palpation. She is able to perform a straight leg raise test. She has appropriate mobility of her digits. She can flex her knee to 90 degrees without difficulty. Peripheral pulses 2+. Capillary fill is less than 2 seconds. Patient is neurovascular intact in left lower extremity. Results & Data ([facility]) Vital Signs (Past 12 Hours) Vital Signs Temp Pulse Resp BP Pulse Ox 08/27/20 07:18 36.9 C 76 18 139/97 94 Laboratory Results 08/27/20 08/27/20 Range/Units 06:55 06:55 WBC 10.18 (4.8-10.8) K/uL RBC 4.44 (4.2-5.4) M/uL Hgb 9.3 L (12.0-16.0) g/dL Hct 29.8 L (37-47) % MCV 67.1 L (80-100) fL MCH 20.9 L (25-34) pg MCHC 31.2 L (32-36) g/dL RDW Std Deviation 65.7 H (36.4-46.3) fL RDW Coeff of Gonzalez 27.6 H (11.5-14.5) % Plt Count 341 (130-400) K/uL MPV 8.4 (7.4-10.4) fL Sodium 139 (136-145) mmol/L Potassium 3.7 (3.5-5.1) mmol/L Chloride 108 H (98-107) mmol/L Carbon Dioxide 24 (21-32) mmol/L Anion Gap 7.0 (3-11) BUN 8 (7-18) mg/dl Creatinine 0.62 (0.6-1.2) mg/dl Est Cr Clr Drug Dosing 62.1 ml/min Est GFR ( Amer) 94.6 Est GFR (Non-Af Amer) 81.6 BUN/Creatinine Ratio 13.4 (10-20) Glucose 86 (70-99) mg/dl Calcium 8.0 L (8.5-10.1) mg/dl
--- NOTE | 2020-08-27 13:39 | Hospitalist Progress Note ---
Date of Service August 27, 2020 Assessment & Plan (1) Hip fracture: 84-year-old female with CKD, prediabetes, dyslipidemia admitted for hip fracture after fall at home. Left hip fracture Status post left hip hemiarthroplasty. Postoperative day #3. Doing well. Cont inue physical therapy. Acute Post-operative blood loss anemia: s/p 2 u PRBC for hgb 7.4 prior to surgery --now stable. Serial lab studies. UTI Present on admission. E. coli and alpha strep isolated. Treated with IV Rocephin for several days and now on oral Keflex to complete her antibiotic course. Thrombocytosis Benign. Due to iron deficiency. No further evaluation warranted. Iron def anemia Parenteral iron replacement ordered. Oral iron replacement also ordered. She needs evaluation of the suspected cecal mass. This could be causing chronic GI blood loss and subsequent iron deficiency anemia. CKD III Stable. Monitor intake and output. Serial labs as needed Rhabdomyolysis Ruled out. The patient does not have rhabdomyolysis. CK was mildly elevated due to muscle trauma related to the hip fracture. No further evaluation warranted. Pre-diabetes ADA diet. Monitor Accu-Cheks. Hgb A1c DVT prophylaxis: SCDs Lovenox SQ Dispo: Will need rehab at discharge once final arrangements are made Admission and Anticipated Discharge Date Admission Date: August 24, 2020 Subjective Alert and oriented. No complaints. She understands she will need to go to a r ehab facility postoperatively after left hip fracture repair. Continue parenteral iron replacement while hospitalized. Start oral iron replacement. Gastroenterology has recommended an outpatient colonoscopy at a later date for evaluation of what appears to be a cecal mass which could account for the iron deficiency anemia. E. coli and alpha strep isolated in the urine. This has been treated with intravenous Rocephin and she is now on oral Keflex to continue and finish her antibiotic course. Review of Systems Review of Systems: All systems reviewed & are unremarkable except as noted in HPI & below Physical Exam Physical Exam: General-alert and oriented x3, no fevers, no chills HEENT-head atraumatic and normocephalic, TMs intact bilaterally, pupils equal and reactive to light, extraocular muscles intact Neck-no lymphadenopathy or thyromegaly, trachea midline Chest-clear to auscultation percussion. No rales wheezing or rhonchi Cardiac-regular rate and rhythm, normal S1 and S2, no murmurs Abdomen-normal bowel sounds, nontender, no hepatosplenomegaly Extremities-no cyanosis, clubbing, or edema. Limited range of motion left hip postoperatively as expected. Hip wound is clean and dry Neuro-cranial nerves II through XII intact, motor and sensory function within normal limits, strength symmetrical 5/5, no focal deficits Psych-normal affect, normal mood Results & Data Results & Data ([facility]) Vital Signs (Past 12 Hours) Vital Signs Temp Pulse Resp BP Pulse Ox 08/27/20 07:18 36.9 C 76 18 139/97 94 Laboratory Results 08/27/20 06:55 08/27/20 06:55 PG Care Time/CCT Total # of Minutes Spent Total Time Spent with Patient: Total time spent is greater than 50% in coordination of care (as documented) at patient's floor/unit and/or counseling patient: Coding Level of Care Code 38761 Subseq Hosp Care Lvl 3 Diagnoses Hip fracture S72.002A Encounter type: initial encounter Fracture type: closed Laterality: left (1) Hip fracture Encounter type: initial encounter Fracture type: closed Laterality: left Qualified Code(s): S72.002A - Fracture of unspecified part of neck of left femur, initial encounter for closed fracture
[2020-08-27] MEDS: FERROUS GLUCONATE 324 MG TAB PO SCH (16:20)
--- NOTE | 2020-08-27 16:40 | Progress Notes ---
DATE: 08/27/2020 The patient was seen in conjunction with Dione Landers. For further details, refer to his dictation. He and I evaluated the patient. I am in agreement with the plan. She is in bed. Reports that she has been up ambulating. Her granddaughter is there. She is afebrile and her vitals are stable. Leg lengths appear equal. She has a trace bit of ankle plantarflexion, dorsiflexion, eversion, inversion and EHL weakness. Normal sensation and a trace palpable dorsalis pedis pulse. Radiographs demonstrate good positioning. No evidence of complication of cemented bipolar hemiarthroplasty. Total hip precautions are reinforced. PT and OT. She will be transferred to a care facility in [place]. We can attempt to arrange a followup closer to that location, perhaps at [place]. We discussed the operative findings and the plan. One of my colleagues will assume her care at this point as I will be out of town until 09/03. She may weightbear as tolerated, total hip precautions. She needs followup in 2 weeks.
[2020-08-27] MEDS: DOCUSATE SODIUM/SENNA 50/8.6MG TAB PO SCH (21:17)
[2020-08-28 06:09] LABS: Basophils # (auto) 0.02 K/uL (0-0.2); Basophils % (auto) 0.2 %; Eosinophils # (auto) 0.39 K/uL (0-0.5); Eosinophils % (auto) 4.3 %; Hematocrit (blood only) 27.1 % (37-47); Hemoglobin 8.8 g/dL (12.0-16.0); Immature Granulocytes # (auto) 0.39 K/uL (0.00-0.02); Immature Granulocytes % (auto) 4.3 %; Lymphocytes # (auto) 1.05 K/uL (1.2-3.4); Lymphocytes % (auto) 11.6 %; Mean Corpuscular Hemoglobin 21.8 pg (25-34); Mean Corpuscular Hgb Conc 32.5 g/dL (32-36); Mean Corpuscular Volume 67.2 fL (80-100); Mean Platelet Volume 8.5 fL (7.4-10.4); Monocytes # (auto) 1.07 K/uL (0.11-0.59); Monocytes % (auto) 11.8 %; Neutrophils # (auto) 6.12 K/uL (1.4-6.5); Neutrophils % (auto) 67.8 %; Platelet Count 324 K/uL (130-400); RDW Coefficient of Variation 28.5 % (11.5-14.5); RDW Standard Deviation 66.6 fL (36.4-46.3); Red Blood Count 4.03 M/uL (4.2-5.4); White Blood Count 9.04 K/uL (4.8-10.8)
[2020-08-28 06:33] LABS: Anisocytosis Present; Hypochromasia Present; Microcytosis Present; Polychromasia 1+; Target Cells 1+
[2020-08-28 06:38] LABS: BUN Creatinine Ratio 14.1 (10-20); Calcium 7.9 mg/dl (8.5-10.1); Creatinine Clr Calc Pharmacy 65.2 ml/min; Est GFR (African American) 96.2; Potassium 3.6 mmol/L (3.5-5.1)
[2020-08-28] MEDS: MULTIVITAMIN TAB PO SCH (08:52)
[2020-08-28] MEDS: FERROUS GLUCONATE 324 MG TAB PO SCH ×2 (08:53→17:39)
[2020-08-28] MEDS: cephALEXin 250 MG CAP PO SCH ×4 (08:53→22:13)
[2020-08-28] MEDS: PANTOprazole 40 MG TAB PO SCH (08:54)
[2020-08-28] MEDS: POLYETHYLENE (MIRALAX) 17 GM PACK PO SCH (08:55)
[2020-08-28] MEDS: ENOXAPARIN INJ 40 MG/0.4 ML SYR SQ SCH (08:55)
[2020-08-28] MEDS: CHOLECALCIFEROL 1,000 UNITS 25 MCG TAB PO SCH (08:55)
[2020-08-28] MEDS: CYANOCOBALAMIN 500 MCG TABLET (VITAMIN B-12) PO SCH (08:55)
--- NOTE | 2020-08-28 09:18 | Orthopedic Progress Note ---
Date of Service August 28, 2020 Assessment & Plan (1) S/P hip hemiarthroplasty: Total hip precautions PT/OT Weightbearing as tolerated with walker assistance Abduction pillow use x6 weeks Pain control with p.o. medication Case management assessment: Patient states that she is planning on going to a rehab facility. Currently a referral has been placed for rehab at [facility] in the [facility]. Patient agrees to pay for transportation to this facility. Ice with EZ WRAP Additional medications and DVT prophylaxis per medicine service Follow-up with Dr. Chand in 2 weeks for staple removal With questions contact our clinic at: [phone] Admission and Anticipated Discharge Date Admission Date: August 24, 2020 Subjective This 84-year-old female seen again this morning. She is sitting comfortably in her bedside chair eating breakfast. She is day 4 status post left hip hemiarthroplasty. States she is doing very well. She has been doing physical therapy and Occupational Therapy. She is able to ambulate with the aid of a walker. She states that she is talked with case management and her son and is waiting for approval to be transferred to a rehab facility in the [facility] to be close to her her son and his family. Currently she denies chest pain, shortness of breath, fever, chills, sweats, lethargy or numbness or tingling in the left lower extremity. Review of Systems Review of Systems: All systems reviewed & are unremarkable except as noted in HPI & below Physical Exam Physical Exam: Left Hip: Dressing was clean dry and intact. Mild edema. No erythema, ecchymosis, warmth, fluctuance or drainage noted. Patient is able to actively dorsi and plantarflex her foot. There is some mild edema to the medial aspect of her ankle with tenderness to palpation that is much less than yesterday. Logroll test is negative. She is able to perform a straight leg raise test. She has appropriate mobility of her digits. She can flex her knee to 90 degrees without difficulty. Peripheral pulses 2+. Capillary fill is less than 2 seconds. Patient is neurovascular intact in left lower extremity. Results & Data ([facility]) Vital Signs (Past 12 Hours) Vital Signs Temp Pulse Resp BP Pulse Ox 08/28/20 07:21 36.9 C 66 16 137/71 92 08/27/20 22:19 37.1 C 73 16 123/65 93
[2020-08-28] MEDS ORDERED: IRON SUCROSE 200 MG in 0.9 % SODIUM CHLORIDE 100 ML IV ONE (12:00)
--- NOTE | 2020-08-28 15:12 | Hospitalist Progress Note ---
Date of Service August 28, 2020 Assessment & Plan (1) Hip fracture: 84-year-old female with CKD, prediabetes, dyslipidemia admitted for hip fracture after fall at home. Left hip fracture Status post left hip hemiarthroplasty. Postoperative day #4. Doing well. Cont inue physical therapy. Acute Post-operative blood loss anemia: s/p 2 u PRBC for hgb 7.4 prior to surgery --now stable. Serial lab studies. UTI Present on admission. E. coli and alpha strep isolated. Treated with IV Rocephin for several days and now on oral Keflex to complete her antibiotic course. Will discontinue antibiotics at discharge Thrombocytosis Benign. Due to iron deficiency. No further evaluation warranted. Iron def anemia Parenteral iron replacement ordered. She will receive her third day of Venofer replacement therapy today. Oral iron replacement also ordered. She needs evaluation of the suspected cecal mass. This could be causing chronic GI blood loss and subsequent iron deficiency anemia. CKD III Stable. Monitor intake and output. Serial labs as needed Rhabdomyolysis Ruled out. The patient does not have rhabdomyolysis. CK was mildly elevated due to muscle trauma related to the hip fracture. No further evaluation warranted. Pre-diabetes ADA diet. Monitor Accu-Cheks. Hgb A1c DVT prophylaxis: SCDs Lovenox SQ Dispo: Discharge to [facility] in [place] tomorrAugust 29 Admission and Anticipated Discharge Date Admission Date: August 24, 2020 Subjective Alert and pleasant. Postoperative day #4. She will receive her third day of parenteral iron replacement and continue oral oral replacement going forward. She will have completed her antibiotic course for the UTI by the time she is discharged to [facility]. Covid test ordered anticipating discharge to [facility] tomorrowAugust 29. She still needs to have outpatient colonoscopy for evaluation of a possible cecal mass. Review of Systems Review of Systems: All systems reviewed & are unremarkable except as noted in HPI & below Physical Exam Physical Exam: General-alert and oriented x3, no fevers, no chills HEENT-head atraumatic and normocephalic, TMs intact bilaterally, pupils equal and reactive to light, extraocular muscles intact Neck-no lymphadenopathy or thyromegaly, trachea midline Chest-clear to auscultation percussion. No rales wheezing or rhonchi Cardiac-regular rate and rhythm, normal S1 and S2, no murmurs Abdomen-normal bowel sounds, nontender, no hepatosplenomegaly Extremities-no cyanosis, clubbing, or edema Neuro-cranial nerves II through XII intact, motor and sensory function within normal limits, strength symmetrical , no focal deficits Psych-normal affect, normal mood Results & Data Results & Data ([facility]) Vital Signs (Past 12 Hours) Vital Signs Temp Pulse Resp BP Pulse Ox 08/28/20 07:21 36.9 C 66 16 137/71 92 Laboratory Results 08/28/20 05:45 08/28/20 05:45 PG Care Time/CCT Total # of Minutes Spent Total Time Spent with Patient: Total time spent is greater than 50% in coordination of care (as documented) at patient's floor/unit and/or counseling patient: Coding Level of Care Code 67956 Subseq Hosp Care Lvl 3 Diagnoses Hip fracture S72.002A Encounter type: initial encounter Fracture type: closed Laterality: left (1) Hip fracture Encounter type: initial encounter Fracture type: closed Laterality: left Qualified Code(s): S72.002A - Fracture of unspecified part of neck of left femur, initial encounter for closed fracture
[2020-08-28] MEDS: DOCUSATE SODIUM/SENNA 50/8.6MG TAB PO SCH (22:20)
[2020-08-29 07:25] LABS: Hemoglobin 8.6 g/dL (12.0-16.0); Mean Corpuscular Hemoglobin 21.1 pg (25-34); Mean Corpuscular Hgb Conc 30.7 g/dL (32-36); Mean Corpuscular Volume 68.6 fL (80-100); Platelet Count 343 K/uL (130-400); RDW Coefficient of Variation 29.2 % (11.5-14.5); RDW Standard Deviation 67.8 fL (36.4-46.3); Red Blood Count 4.08 M/uL (4.2-5.4); White Blood Count 9.59 K/uL (4.8-10.8)
[2020-08-29] MEDS: POLYETHYLENE (MIRALAX) 17 GM PACK PO SCH (07:38)
[2020-08-29] MEDS: PANTOprazole 40 MG TAB PO SCH (07:39)
[2020-08-29] MEDS: CHOLECALCIFEROL 1,000 UNITS 25 MCG TAB PO SCH (07:39)
[2020-08-29] MEDS: cephALEXin 250 MG CAP PO SCH ×4 (07:39→20:27)
[2020-08-29] MEDS: MULTIVITAMIN TAB PO SCH (07:39)
[2020-08-29] MEDS: FERROUS GLUCONATE 324 MG TAB PO SCH ×2 (07:39→17:14)
[2020-08-29] MEDS: ENOXAPARIN INJ 40 MG/0.4 ML SYR SQ SCH (07:39)
[2020-08-29] MEDS: CYANOCOBALAMIN 500 MCG TABLET (VITAMIN B-12) PO SCH (07:39)
[2020-08-29 07:53] LABS: Anisocytosis Present; Basophils # (auto) 0.04 K/uL (0-0.2); Basophils % (auto) 0.4 %; Eosinophils # (auto) 0.39 K/uL (0-0.5); Eosinophils % (auto) 4.1 %; Hypochromasia Present; Immature Granulocytes % (auto) 5.2 %; Lymphocytes # (auto) 1.16 K/uL (1.2-3.4); Lymphocytes % (auto) 12.1 %; Microcytosis Present; Monocytes # (auto) 1.21 K/uL (0.11-0.59); Monocytes % (auto) 12.6 %; Neutrophils # (auto) 6.29 K/uL (1.4-6.5); Neutrophils % (auto) 65.6 %; Ovalocytes 1+
[2020-08-29 07:54] LABS: BUN Creatinine Ratio 13.1 (10-20); Creatinine Clr Calc Pharmacy 61.1 ml/min; Est GFR (African American) 94.1; Est GFR (Non-African American) 81.2; Potassium 3.6 mmol/L (3.5-5.1)
--- NOTE | 2020-08-29 08:57 | Discharge Summary ---
Date of Service August 29, 2020 Admission HPI Per Admitting Provider This 84-year-old white female presented through the ED, for left hip pain. Patient states she fell while taking out her garbage. She was trying to adjust the can, so it was not present in the roadway. She states she slipped in the small stones at the edge of the road. She states a male neighbor helped her back to the house and was not having significant pain immediately after the fall. She has been essentially nonmobile for the last 48 hours due to pain. Per the ED report, her family was unable to reach her for 2 days and became concerned. They sent a male neighbor over to the house, who found her sitting on the floor, unable to move secondary to hip pain. She was finally seen in the ED last evening and found to have a left and found to have a femoral neck fracture. She denies any prior history of significant hip injury. No numbness or tingling. She is somewhat confused this morning. No other complaints. 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 Discharge Data Allergies Allergy/AdvReac Type Severity Reaction Status Date / Time No Known Drug Allergies Allergy Unknown Verified 08/24/20 00:20 Consultations 08/23/20 23:16 Consult Case Management - Discharge Planning Routine 08/24/20 00:31 ED Decision to Admit Stat 08/24/20 00:40 Consult Orthopedic Surgery Stat 08/24/20 02:37 Consult Case Management - Discharge Planning Routine Consult Orthopedic Surgery Routine 08/24/20 09:04 Consult Gastroenterology Routine Procedures Performed Operation Date: 08/24/20 07:55 Actual Procedures p Left Hip Hemiarthroplasty(Left) - Man Chand MD Ordered Studies 08/23/20 23:45 CT head/brain wo con Urgent CT lumbar spine wo con Urgent 08/24/20 00:43 CT pelvis wo con Urgent 08/24/20 09:00 US venous doppler LE BI Stat Hospital Course (1) Hip fracture: 84-year-old female with CKD, prediabetes, dyslipidemia admitted for hip fracture after fall at home. Left hip fracture Status post left hip hemiarthroplasty. Postoperative day #5. Doing well. Continue physical therapy. Acute Post-operative blood loss anemia: s/p 2 u PRBC for hgb 7.4 prior to surgery --now stable. Serial lab studies. UTI Present on admission. E. coli and alpha strep isolated. Treated with IV Rocephin for several days and now on oral Keflex to complete her antibiotic course. Will discontinue antibiotics at discharge Thrombocytosis Benign. Due to iron deficiency. No further evaluation warranted. Iron def anemia Parenteral iron replacement ordered. She will receive her third day of Venofer replacement therapy today. Oral iron replacement also ordered. She needs evaluation of the suspected cecal mass. This could be causing chronic GI blood loss and subsequent iron deficiency anemia. CKD III Stable. Monitor intake and output. Serial labs as needed Rhabdomyolysis Ruled out. The patient does not have rhabdomyolysis. CK was mildly elevated due to muscle trauma related to the hip fracture. No further evaluation warranted. Pre-diabetes ADA diet. Monitor Accu-Cheks. Hgb A1c DVT prophylaxis: SCDs Lovenox SQ Dispo: Discharge to [facility] in [place] today, August 29 Total Time Total Time Spent Total Time Spent (In Minutes): 35 minutes Total Time Includes: Examination of the Patient, Discharge Planning and Medication Reconciliation Discharge Plan Discharge Items Reason For Visit: HIP FRACTURE Non-emergency contact: Surgeon Call non-emergency contact if: your temperature is above 101, your wound has increased redness and your wound has increased drainage Follow-up/Referrals: Giovana Strong DO [Primary Care Provider] - Addtl Dipper Fish Provider Instructions: "VERY IMPORTANT TO READ AND REVIEW" Blood Clots and Blood Thinning Medicine: * Take your blood thinner as prescribed x 2-4 weeks. Continue until discontinued by surgical team. Lovenox daily. Pain: * The immediate post-operative period after hip replacement surgery is often quite painful. * You are given a prescription for pain medicine. You should take it, as directed, when you need it, especially before physical therapy and before going to bed. Pain that interferes with sleep is very common and can last several months. * You will likely need pain medicine for the first two to four weeks. It will not stop all of the pain. The pain will lessen and as you feel better, you may change to milder pain medicine such as Tylenol. * The most common side effects of pain medicine are nausea and constipation, so don't take more than you need. Physical Therapy: * Follow the "Hip Precautions Instructions." * In some cases, the social insurance specialist at the hospital will arrange to have a therapist come to your house for the first couple of weeks to help you learn these skills. * You need to practice on your own or with the help of a family member as needed. * When you learn these skills, most of the therapy can be done on your own. Home Exercise: * You were shown a series of exercises in the hospital. Do these exercises three to four times each day including the exercises you were shown in physical therapy. Walking: * Get up and walk several times each day. For the first four weeks, try not to stand or walk for more than one hour at a time. If you do stand or walk for more than one hour, you will not hurt anything, but your leg will likely swell. * As you feel comfortable, you may change from the walker or crutches to a cane and then to independent walking. SELF CARE INSTRUCTIONS AFTER TOTAL HIP REPLACEMENT Until the incision and soft tissues around your hip have healed, there is a possibility that the hip prosthesis could dislocate. A. Observe the following precautions to prevent dislocation: 1. Don't bend your hip greater than 90 degrees. 2. Avoid crossing your legs or ankles while standing or lying. 3. Sit with your feet placed 6 inches apart. 4. When sitting, keep your knees below your hips. Sit on a firm surface, avoid deep, soft chairs and couches. Use an elevated toilet seat in the bathroom. 5. Don't bend over at the waist. Use a long handled shoehorn and a sock aid to help you put on your shoes and socks. A advanced practice professional can help you lease picker objects that are too high or too low to reach. 6. Keep car riding to a minimum for at least one month after surgery. B. Your balance may be shaky for a while. Use crutches or a walker until directed by your doctor. C. Use hand rails when walking on stairs. D. Wear low heeled shoes with non-slip soles. E. Be sure that your floors are free of things that could trip you - throw rugs, electrical cords, small objects. Avoid wet and waxed floors, especially with crutches and canes. F. Try to walk several times a day with rest periods between. G. Continue with all the exercises taught to you in the hospital. Again, make walking a part of your daily routine. VERY IMPORTANT TO READ AND REVIEW A. Take Coumadin, or Lovenox (blood thinning medications) as directed by your doctor. B. There are a few signs you need to watch for after you are home. If you notice any of the followin. Increased severe hip pain. Some pain is expected especially when you exercise. 2. Increased swelling in your leg or knee; pain or swelling of the calf muscle in either lower leg. 3. Any fluid drainage from the incision. 4. Shortness of breath or chest pain. TEDs/Elastic Stockings: * The white elastic stockings help limit swelling and prevent blood clots from forming in your legs. The more you wear them, the more they work. * Wear them for six weeks. Prevention of Infection: * Take antibiotics one hour before any dental cleaning, dental work, urological procedure, gastrointestinal procedure or any invasive surgery in order to prevent your new joint from getting infected. * You may get the antibiotics from the doctor performing the procedure or we will call in a prescription to the pharmacy of your choice. Call the office for a prescription at least 2 days prior to your appointment. Things to Watch For: * Drainage from the incision site that occurs more than one week after your surgery. * Severely increased leg pain or swelling. * Increased redness at the incision site. * Fever above 101 degrees Fahrenheit. * Unusual chest pain or shortness of breath. * Unusual pain or burning with urination. Medications and DC Order Prescriptions: No Action ferrous sulfate 325 mg (65 mg iron) tablet 325 mg PO DAILY Qty: 30 RF: 2 Centrum Silver Women 8 mg iron-400 mcg-300 mcg tablet 1 tab PO DAILY RF: 0 glucosamine HCl 1,500 mg tablet 1,500 mg PO DAILY RF: 0 vitamin E (dl, acetate) 400 unit capsule 400 units PO DAILY RF: 0 cholecalciferol (vitamin D3) 1,000 unit capsule 1,000 units PO DAILY RF: 0 Admission Data Admit Date/Time: 08/24/20 08:04 Attending Provider: Vickey Barragan Admit Provider: Irasema Real Primary Care Provider: Giovana Strong Other Providers: Man Chand ; Dionte Feldman ; Heriberto Guardado ; [facility] Coding Level of Care Code D/C Day Management >30 mins Diagnoses Hip fracture S72.002A Encounter type: initial encounter Fracture type: closed Laterality: left
--- NOTE | 2020-08-29 11:17 | Orthopedic Progress Note ---
Date of Service August 29, 2020 Assessment & Plan (1) S/P hip hemiarthroplasty: POD 5 - s/p hemiarthroplasty left hip with Dr. Chand Allowed OOB as tolerated with assistance of a walker. May WBAT LLE Abduction pillow when out of bed in chair and when in bed. Posterior hip precautions at all times PT/OT Pain medication as needed. Teds bilateral lower extremities for DVT prophylaxis. Also continue Lovenox for DVT prophylaxis. She is most likely going to Inpatient Rehab in [place] later today. Okay from ortho standpoint for discharge. Will arrange follow up in approximately 2 weeks with [facility] in [place]. Appointment currently pending. Follow up with Dr. Chand as needed (patient states she will not be coming back to the area for follow up). Admission and Anticipated Discharge Date Admission Date: August 24, 2020 Subjective Patient is sitting up in her bedside chair. states that she feels great. She's getting around her room comfortably and safely. She denies pain in her left hip, except with movement. Physical Exam Physical Exam: Exam of left hip: incision clean, dry and intact with retained kaitlyn. NO surrounding hematoma or seroma. No active drainage. Mild edema in LLE, calf supple and nontender, distal pulses 1+. Moves toes and ankles well. Strength left ankle 5/5. no effusion left knee. tolerates full ROM of left knee. Able to independently SLR LLE. Tolerates gentle IR and ER of left hip. Able to actively flex hip with minor discomfort. Results & Data ([facility]) Vital Signs (Past 12 Hours) Vital Signs Temp Pulse Resp BP Pulse Ox 08/29/20 06:38 36.7 C 67 16 133/69 93 Laboratory Results 08/29/20 08/29/20 08/29/20 Range/Units Unknown 06:30 06:30 WBC 9.59 (4.8-10.8) K/uL RBC 4.08 L (4.2-5.4) M/uL Hgb 8.6 L (12.0-16.0) g/dL Hct 28.0 L (37-47) % MCV 68.6 L (80-100) fL MCH 21.1 L (25-34) pg MCHC 30.7 L (32-36) g/dL RDW Std Deviation 67.8 H (36.4-46.3) fL RDW Coeff of Gonzalez 29.2 H (11.5-14.5) % Plt Count 343 (130-400) K/uL MPV 9.0 (7.4-10.4) fL Immature Gran % (Auto) 5.2 % Neut % (Auto) 65.6 % Lymph % (Auto) 12.1 % [place] % (Auto) 12.6 % Eos % (Auto) 4.1 % Baso % (Auto) 0.4 % Neut # (Auto) 6.29 (1.4-6.5) K/uL Lymph # (Auto) 1.16 L (1.2-3.4) K/uL [place] # (Auto) 1.21 H (0.11-0.59) K/uL Eos # (Auto) 0.39 (0-0.5) K/uL Baso # (Auto) 0.04 (0-0.2) K/uL Immature Gran # (Auto) 0.50 H (0.00-0.02) K/uL Hypochromasia Present Anisocytosis Present Microcytosis Present Ovalocytes 1+ Sodium 141 (136-145) mmol/L Potassium 3.6 (3.5-5.1) mmol/L Chloride 109 H (98-107) mmol/L Carbon Dioxide 28 (21-32) mmol/L Anion Gap 4.0 (3-11) BUN 8 (7-18) mg/dl Creatinine 0.63 (0.6-1.2) mg/dl Est Cr Clr Drug Dosing 61.1 ml/min Est GFR ( Amer) 94.1 Est GFR (Non-Af Amer) 81.2 BUN/Creatinine Ratio 13.1 (10-20) Glucose 84 (70-99) mg/dl Calcium 8.0 L (8.5-10.1) mg/dl SARS-CoV-2 Ag (Rapid) Negative (Negative)
[2020-08-29] MEDS: DOCUSATE SODIUM/SENNA 50/8.6MG TAB PO SCH (20:29)
[2020-08-30 06:18] LABS: Hematocrit (blood only) 27.3 % (37-47); Hemoglobin 8.5 g/dL (12.0-16.0); Mean Corpuscular Hemoglobin 21.4 pg (25-34); Mean Corpuscular Hgb Conc 31.1 g/dL (32-36); Mean Corpuscular Volume 68.6 fL (80-100); Mean Platelet Volume 8.7 fL (7.4-10.4); Platelet Count 384 K/uL (130-400); RDW Coefficient of Variation 29.8 % (11.5-14.5); Red Blood Count 3.98 M/uL (4.2-5.4); White Blood Count 9.61 K/uL (4.8-10.8)
[2020-08-30 06:44] LABS: Anisocytosis Present; Basophils # (auto) 0.04 K/uL (0-0.2); Basophils % (auto) 0.4 %; Eosinophils # (auto) 0.38 K/uL (0-0.5); Hypochromasia Present; Immature Granulocytes # (auto) 0.49 K/uL (0.00-0.02); Immature Granulocytes % (auto) 5.1 %; Lymphocytes # (auto) 1.18 K/uL (1.2-3.4); Lymphocytes % (auto) 12.3 %; Microcytosis Present; Monocytes # (auto) 0.99 K/uL (0.11-0.59); Monocytes % (auto) 10.3 %; Neutrophils # (auto) 6.53 K/uL (1.4-6.5); Neutrophils % (auto) 67.9 %; Polychromasia 1+
[2020-08-30 06:47] LABS: BUN Creatinine Ratio 18.6 (10-20); Creatinine Clr Calc Pharmacy 62.1 ml/min; Est GFR (African American) 94.6; Est GFR (Non-African American) 81.6; Potassium 3.7 mmol/L (3.5-5.1)
[2020-08-30] MEDS: cephALEXin 250 MG CAP PO SCH (08:04)
[2020-08-30] MEDS: FERROUS GLUCONATE 324 MG TAB PO SCH (08:04)
[2020-08-30] MEDS: ENOXAPARIN INJ 40 MG/0.4 ML SYR SQ SCH (08:05)
[2020-08-30] MEDS: POLYETHYLENE (MIRALAX) 17 GM PACK PO SCH (08:06)
[2020-08-30] MEDS: CHOLECALCIFEROL 1,000 UNITS 25 MCG TAB PO SCH (08:08)
[2020-08-30] MEDS: CYANOCOBALAMIN 500 MCG TABLET (VITAMIN B-12) PO SCH (08:08)
[2020-08-30] MEDS: PANTOprazole 40 MG TAB PO SCH (08:08)
[2020-08-30] MEDS: MULTIVITAMIN TAB PO SCH (08:08)
--- NOTE | 2020-08-30 10:13 | Hospitalist Progress Note ---
Date of Service August 30, 2020 Assessment & Plan (1) Hip fracture: 84-year-old female with CKD, prediabetes, dyslipidemia admitted for hip fracture after fall at home. Left hip fracture Status post left hip hemiarthroplasty. Postoperative day #6. Doing well. Cont inue physical therapy. Acute Post-operative blood loss anemia: s/p 2 u PRBC for hgb 7.4 prior to surgery --now stable. UTI Present on admission. E. coli and alpha strep isolated. Treated with IV Rocephin for several days and now on oral Keflex to complete her antibiotic course. Will discontinue antibiotics at discharge Thrombocytosis Benign. Due to iron deficiency. No further evaluation warranted. Iron def anemia Parenteral iron replacement ordered. She will receive her third day of Venofer replacement therapy today. Oral iron replacement also ordered. She needs evaluation of the suspected cecal mass. This could be causing chronic GI blood loss and subsequent iron deficiency anemia. CKD III Stable. Monitor intake and output. Serial labs as needed Rhabdomyolysis Ruled out. The patient does not have rhabdomyolysis. CK was mildly elevated due to muscle trauma related to the hip fracture. No further evaluation warranted. Pre-diabetes ADA diet. Monitor Accu-Cheks. Hgb A1c DVT prophylaxis: SCDs Lovenox SQ Dispo: Discharge to [facility] in [place] was held due to transport. For discharge summary, please refer to discharge summary from yesterday. Admission and Anticipated Discharge Date Admission Date: August 24, 2020 Subjective Patient reports no new symptoms Review of Systems Review of Systems: All systems reviewed & are unremarkable except as noted in HPI & below Physical Exam Physical Exam: General-alert and oriented x3, no fevers, no chills HEENT-head atraumatic and normocephalic, TMs intact bilaterally, pupils equal and reactive to light, extraocular muscles intact Neck-no lymphadenopathy or thyromegaly, trachea midline Chest-clear to auscultation percussion. No rales wheezing or rhonchi Cardiac-regular rate and rhythm, normal S1 and S2, no murmurs Abdomen-normal bowel sounds, nontender, no hepatosplenomegaly Extremities-no cyanosis, clubbing, or edema Neuro-cranial nerves II through XII intact, motor and sensory function within normal limits, strength symmetrical , no focal deficits Psych-normal affect, normal mood Results & Data Results & Data ([facility]) Vital Signs (Past 12 Hours) Vital Signs Temp Pulse Pulse Resp BP BP Pulse Ox 08/30/20 08:00 36.8 C 82 83 18 140/62 137/74 94 08/30/20 07:38 36.8 C 82 18 137/74 94 08/29/20 22:45 36.8 C 107 H 18 140/62 93 PG Care Time/CCT Total # of Minutes Spent Total Time Spent with Patient: Total time spent is greater than 50% in coordination of care (as documented) at patient's floor/unit and/or counseling patient: Coding Level of Care Code 80832 Subseq Hosp Care Lvl 2 Diagnoses Hip fracture S72.002A Encounter type: initial encounter Fracture type: closed Laterality: left (1) Hip fracture Encounter type: initial encounter Fracture type: closed Laterality: left Qualified Code(s): S72.002A - Fracture of unspecified part of neck of left femur, initial encounter for closed fracture
== END 2020-08-30 12:21 | DRG 522 ==
LOC: 3N 23:04 → ED 23:04 → SUATTDRO 08-24 01:16 → 3N 08-24 02:04 → SUATTDRO 08-24 08:04 → 3N 08-27 17:05